=== PATIENT | male | born 1975 | race Caucasian/White ===

== ENCOUNTER 2017-05-02 16:35 | Inpatient (IN) | payer MEDICAID ==
[~2017-05-02] VITALS: Ht 190.5 cm; Wt 195.6 kg
[~2017-05-02 16:35] MED LIST: AMIO200T57 PO; APIX5TAB3 PO; ASPI-1265 PO; CARV-50 PO; ESCI20TA PO; FURO-150 PO; LISI-644 PO; LORA0.5T PO; LORA10TA61 PO; MAGN200T5 PO; METO5TAB7 PO; POTA20PA3 PO; SIMV10TA2 PO; SPIR25TA3 PO
[2017-05-02] MEDS ORDERED: aspirin 81mg tab.chew PO ONE (16:50)
[2017-05-02 17:13] LABS: BASOPHILS % (AUTO) 0.4 % (0-1); EOSINOPHILS # (AUTO) 0.4 X10'3 (0-0.9); EOSINOPHILS % (AUTO) 3.1 % (0-6); HEMATOCRIT 42.1 % (42.0-52.0); HEMOGLOBIN 13.8 g/dl (14.0-17.9); LYMPHOCYTES # (AUTO) 1.7 X10'3 (1.1-4.8); LYMPHOCYTES % (AUTO) 15.3 % (21-51); MEAN CORPUSCULAR HEMOGLOBIN 27.5 PG (27.0-31.0); MEAN CORPUSCULAR HGB CONC 32.8 % (33.0-36.5); MEAN CORPUSCULAR VOLUME 83.7 FL (78-98); MEAN PLATELET VOLUME 7.2 FL (7.4-10.4); MONOCYTES # (AUTO) 0.6 X10'3 (0-0.9); NEUTROPHILS # (AUTO) 8.6 X10'3 (1.8-7.7); NEUTROPHILS % (AUTO) 76.2 % (42-75); PLATELET COUNT 265 X10'3 (140-440); RED BLOOD COUNT 5.03 X10'6 (4.70-6.10); RED CELL DISTRIBUTION WIDTH 15.8 % (11.5-14.5); WHITE BLOOD COUNT 11.3 X10'3 (4.5-11.0)
[2017-05-02 17:38] LABS: ALANINE AMINOTRANSFERASE 55 U/L (12-78); ALBUMIN 3.3 G/DL (3.4-5.0); ALBUMIN/GLOBULIN RATIO 0.7 (1.1-1.5); ALKALINE PHOSPHATASE 71 IU/L (46-116); ANION GAP 8 (8-16); ASPARTATE AMINO TRANSFERASE 33 U/L (10-37); BILIRUBIN,TOTAL 0.3 MG/DL (0.1-1.0); BLOOD UREA NITROGEN 23 MG/DL (7-18); BUN/CREATININE RATIO 20.9 (5.4-32.0); CALCIUM 9.3 MG/DL (8.5-10.1); CHLORIDE 98 MMOL/L (99-107); GLUCOSE 161 MG/DL (70-104); MAGNESIUM 1.5 MG/DL (1.5-2.4); SODIUM 141 MMOL/L (135-145); TOTAL CARBON DIOXIDE 34.7 MMOL/L (24-32); TOTAL PROTEIN 7.8 G/DL (6.4-8.2); eGFR 75 ML/MIN
[2017-05-02 17:40] LABS: POTASSIUM 2.6 MMOL/L (3.5-5.1)
[2017-05-02] MEDS ORDERED: furosemide 10 MG/1 ML 10ml inj IV ONE (18:05)
[2017-05-02] MEDS ORDERED: metoprolol tartrate 1mg/ml inj IV ONE (18:05)
[2017-05-02 18:22] LABS: CLARITY,URINE CLEAR (Clear); COLOR,URINE YELLOW (Yellow); GLUCOSE, URINE NEGATIVE (Neg); KETONES,URINE NEGATIVE (Neg); LEUKOCYTE ESTERASE ,URINE NEGATIVE (Neg); NITRITES, URINE NEGATIVE (Neg); OCCULT BLOOD,URINE SMALL (Neg); PROTEIN,URINE 30 mg/dl (Neg); UA COLLECTION TYPE CLN CATCH MIDSTREAM; UROBILINOGEN,URINE 0.2 E.U/dL (0.2-1.0)
[2017-05-02 18:31] LABS: URINE AMPHETAMINE SCREEN NEGATIVE (Neg); URINE BENZODIAZEPINES SCREEN NEGATIVE (Neg); URINE CANNABINOID SCREEN NEGATIVE (Neg); URINE COCAINE SCREEN NEGATIVE (Neg); URINE METHADONE SCREEN NEGATIVE (Neg); URINE OPIATE SCREEN NEGATIVE (Neg); URINE PHENCYCLIDINE SCREEN NEGATIVE (Neg)
[2017-05-02 18:32] LABS: BACTERIA,URINE NONE SEEN /HPF (Neg); MUCUS STRANDS NONE SEEN /LPF (Neg); RBC,URINE 0-2 /HPF (0-2); SQUAMOUS EPITHELIAL CELL,UR NONE SEEN /LPF (FEW); WBC,URINE NONE SEEN /HPF (0-4)
[2017-05-02 18:33] LABS: URINE BARBITUATE SCREEN POSITIVE (Neg)
[2017-05-02] MEDS ORDERED: diltiazem 5mg/ml 5ml inj. IV ONE (18:50)
[2017-05-02] MEDS ORDERED: morphine 2 MG/ML inj. syringe IV ONE (19:40)
[2017-05-02] MEDS ORDERED: ondansetron/PF 4mg/2ml inj IV PRN (20:00)
[2017-05-02] MEDS ORDERED: magnesium hydroxide 30ml (MOM) UD suspension PO PRN (20:00)
[2017-05-02] MEDS ORDERED: mag hydrox/Alum hydrox/simeth 30ml oral suspension PO PRN (20:00)
[2017-05-02] MEDS ORDERED: LORazepam 0.5 MG tablet PO PRN (20:05)
[2017-05-02] MEDS ORDERED: potassium Cl 20 mEq SR tablet PO PRN (20:25)
[2017-05-02 20:37] LABS: ALANINE AMINOTRANSFERASE 56 U/L (12-78); ALBUMIN 3.4 G/DL (3.4-5.0); ALBUMIN/GLOBULIN RATIO 0.7 (1.1-1.5); ALKALINE PHOSPHATASE 70 IU/L (46-116); ASPARTATE AMINO TRANSFERASE 36 U/L (10-37); BILIRUBIN,DIRECT 0.1 MG/DL (0-0.3); BILIRUBIN,TOTAL 0.3 MG/DL (0.1-1.0); TOTAL PROTEIN 8.2 G/DL (6.4-8.2); eGFR 75 ML/MIN
[2017-05-02 20:41] LABS: POTASSIUM 2.6 MMOL/L (3.5-5.1)
[2017-05-02] MEDS ORDERED: MAGN400T6 PO (21:16)
[2017-05-02] MEDS ORDERED: DULO20CA50 PO (21:16)
[2017-05-02] MEDS ORDERED: BUPR150T6 (21:16)
[2017-05-02 21:30] VITALS: BP 96/76
[2017-05-02] MEDS: potassium Cl 20 mEq SR tablet PO PRN (21:36)
[2017-05-02] MEDS: atorvastatin 10mg tablet PO SCH (21:36)
[2017-05-02 23:00] VITALS: BP 121/79
[2017-05-03] VITALS (13 sets, daily range): BP systolic 64–131; BP diastolic 37–113
[2017-05-03] MEDS: potassium Cl 20 mEq SR tablet PO PRN (01:23)
[2017-05-03 05:45] LABS: BASOPHILS # (AUTO) 0.1 X10'3 (0-0.2); BASOPHILS % (AUTO) 0.7 % (0-1); EOSINOPHILS # (AUTO) 0.3 X10'3 (0-0.9); EOSINOPHILS % (AUTO) 3.2 % (0-6); HEMATOCRIT 42.8 % (42.0-52.0); HEMOGLOBIN 13.7 g/dl (14.0-17.9); LYMPHOCYTES # (AUTO) 1.7 X10'3 (1.1-4.8); LYMPHOCYTES % (AUTO) 18.4 % (21-51); MEAN CORPUSCULAR HGB CONC 32.1 % (33.0-36.5); MEAN CORPUSCULAR VOLUME 84.1 FL (78-98); MEAN PLATELET VOLUME 7.8 FL (7.4-10.4); MONOCYTES # (AUTO) 0.7 X10'3 (0-0.9); MONOCYTES % (AUTO) 7.6 % (2-12); NEUTROPHILS # (AUTO) 6.6 X10'3 (1.8-7.7); NEUTROPHILS % (AUTO) 70.1 % (42-75); PLATELET COUNT 214 X10'3 (140-440); RED BLOOD COUNT 5.09 X10'6 (4.70-6.10); WHITE BLOOD COUNT 9.4 X10'3 (4.5-11.0)
[2017-05-03 05:58] LABS: ALANINE AMINOTRANSFERASE 53 U/L (12-78); ALBUMIN 3.1 G/DL (3.4-5.0); ALBUMIN/GLOBULIN RATIO 0.7 (1.1-1.5); ALKALINE PHOSPHATASE 64 IU/L (46-116); ANION GAP 9 (8-16); ASPARTATE AMINO TRANSFERASE 41 U/L (10-37); BILIRUBIN,TOTAL 0.5 MG/DL (0.1-1.0); BLOOD UREA NITROGEN 24 MG/DL (7-18); CALCIUM 9.2 MG/DL (8.5-10.1); CHLORIDE 97 MMOL/L (99-107); GLUCOSE 134 MG/DL (70-104); SODIUM 137 MMOL/L (135-145); TOTAL CARBON DIOXIDE 31.5 MMOL/L (24-32); TOTAL PROTEIN 7.5 G/DL (6.4-8.2); eGFR 83 ML/MIN
[2017-05-03 07:09] LABS: POTASSIUM 2.9 MMOL/L (3.5-5.1)
[2017-05-03] MEDS ORDERED: SACU1TAB (07:53)
[2017-05-03] MEDS ORDERED: furosemide 10 MG/1 ML 10ml inj IV SCH (08:00)
[2017-05-03] MEDS ORDERED: furosemide 20MG tablet PO SCH (08:00)
[2017-05-03] MEDS ORDERED: carVEDilol 12.5mg tablet PO SCH (08:00)
[2017-05-03] MEDS: citalopram 20mg tablet PO SCH (08:00)
[2017-05-03] MEDS ORDERED: potassium Cl 20 mEq SR tablet PO SCH (08:00)
[2017-05-03] MEDS: loratadine 10mg tablet PO SCH (09:17)
[2017-05-03] MEDS: magnesium oxide 400mg tablet PO SCH (09:18)
[2017-05-03] MEDS: aspirin 81mg tab.chew PO SCH (09:19)
[2017-05-03] MEDS: potassium Cl 20 mEq SR tablet PO SCH ×4 (09:21→21:21)
[2017-05-03] MEDS: furosemide inj 100 ML IV SCH (09:24)
[2017-05-03] MEDS: spironolactone 25 MG tablet PO SCH ×2 (09:25→21:23)
[2017-05-03] MEDS: lisinopril 20mg tablet PO SCH ×2 (09:25→21:23)
[2017-05-03] MEDS: amiodarone 200mg tablet PO SCH (09:25)
[2017-05-03] MEDS: apixaban 5mg tablet PO SCH ×2 (10:12→21:23)
[2017-05-03] MEDS: metolazone 2.5mg tablet PO SCH (10:13)
[2017-05-03] MEDS ORDERED: normal saline 500ml IV soln 500 ML IV ONE (13:55)
[2017-05-03] MEDS ORDERED: albumin (human) 25% 100 ML IV solution IV ONE (15:25)
[2017-05-03] MEDS: midodrine tablet 2.5 MG TABLET PO SCH (15:41)
[2017-05-03] MEDS: atorvastatin 10mg tablet PO SCH (21:24)
[2017-05-04] VITALS (16 sets, daily range): BP systolic 92–121; BP diastolic 37–85
[2017-05-04] MEDS: potassium Cl 20 mEq SR tablet PO SCH ×4 (00:03→22:07)
[2017-05-04] MEDS: midodrine tablet 2.5 MG TABLET PO SCH ×3 (00:03→16:58)
[2017-05-04] MEDS: DOBUTamine-DoBUTrex 500mg/D5W 250 ML IV SCH ×6 (02:36→22:12)
[2017-05-04] MEDS ORDERED: furosemide 10 MG/1 ML 10ml inj IV ONE (02:40)
[2017-05-04] MEDS: furosemide inj 100 ML IV SCH ×2 (03:46→11:35)
[2017-05-04 05:30] LABS: BASOPHILS % (AUTO) 0.3 % (0-1); EOSINOPHILS # (AUTO) 0.4 X10'3 (0-0.9); EOSINOPHILS % (AUTO) 3.7 % (0-6); HEMATOCRIT 35.9 % (42.0-52.0); LYMPHOCYTES # (AUTO) 1.8 X10'3 (1.1-4.8); LYMPHOCYTES % (AUTO) 15.4 % (21-51); MEAN CORPUSCULAR HEMOGLOBIN 27.8 PG (27.0-31.0); MEAN CORPUSCULAR HGB CONC 33.5 % (33.0-36.5); MEAN CORPUSCULAR VOLUME 83.2 FL (78-98); MEAN PLATELET VOLUME 7.2 FL (7.4-10.4); MONOCYTES # (AUTO) 0.9 X10'3 (0-0.9); MONOCYTES % (AUTO) 7.3 % (2-12); NEUTROPHILS # (AUTO) 8.6 X10'3 (1.8-7.7); NEUTROPHILS % (AUTO) 73.3 % (42-75); PLATELET COUNT 258 X10'3 (140-440); RED BLOOD COUNT 4.32 X10'6 (4.70-6.10); RED CELL DISTRIBUTION WIDTH 16.6 % (11.5-14.5); WHITE BLOOD COUNT 11.7 X10'3 (4.5-11.0)
[2017-05-04 05:41] LABS: ALANINE AMINOTRANSFERASE 44 U/L (12-78); ALBUMIN 3.1 G/DL (3.4-5.0); ALBUMIN/GLOBULIN RATIO 0.8 (1.1-1.5); ALKALINE PHOSPHATASE 59 IU/L (46-116); ANION GAP 7 (8-16); ASPARTATE AMINO TRANSFERASE 30 U/L (10-37); BILIRUBIN,TOTAL 0.5 MG/DL (0.1-1.0); BLOOD UREA NITROGEN 49 MG/DL (7-18); BUN/CREATININE RATIO 18.8 (5.4-32.0); CHLORIDE 95 MMOL/L (99-107); GLUCOSE 127 MG/DL (70-104); POTASSIUM 3.7 MMOL/L (3.5-5.1); SODIUM 137 MMOL/L (135-145); TOTAL CARBON DIOXIDE 35.5 MMOL/L (24-32); eGFR 28 ML/MIN
[2017-05-04] MEDS: acetaminophen 325mg tablet PO PRN (06:36)
[2017-05-04] MEDS ORDERED: albumin (human) 25% 100 ML IV solution IV ONE (07:30)
[2017-05-04] MEDS ORDERED: acetaminophen 325mg tablet PO PRN (07:30)
[2017-05-04] MEDS: citalopram 20mg tablet PO SCH (08:00)
[2017-05-04] MEDS: aspirin 81mg tab.chew PO SCH (08:14)
[2017-05-04] MEDS: magnesium oxide 400mg tablet PO SCH (08:14)
[2017-05-04] MEDS: loratadine 10mg tablet PO SCH (08:14)
[2017-05-04] MEDS: metolazone 2.5mg tablet PO SCH (08:14)
[2017-05-04] MEDS: amiodarone 200mg tablet PO SCH (08:15)
[2017-05-04] MEDS: lisinopril 20mg tablet PO SCH (08:15)
[2017-05-04] MEDS: spironolactone 25 MG tablet PO SCH ×2 (08:15→19:43)
[2017-05-04] MEDS: morphine 2 MG/ML inj. syringe IV PRN ×3 (09:21→22:12)
[2017-05-04] MEDS: apixaban 5mg tablet PO SCH ×2 (09:22→19:43)
[2017-05-04] MEDS: HYDROcodone/acetaminophen 10/325mg tab PO PRN (12:36)
[2017-05-04] MEDS: guaiFENesin 200 MG/10 ML oral syrup UD cup PO SCH ×2 (12:42→22:08)
[2017-05-04 15:36] LABS: MAGNESIUM 2.2 MG/DL (1.5-2.4); POTASSIUM 3.6 MMOL/L (3.5-5.1)
[2017-05-04] MEDS: atorvastatin 10mg tablet PO SCH (22:08)
[2017-05-05] VITALS (19 sets, daily range): BP systolic 86–129; BP diastolic 43–83
[2017-05-05] MEDS: midodrine tablet 2.5 MG TABLET PO SCH ×2 (00:48→07:59)
[2017-05-05] MEDS ORDERED: potassium Cl 20 mEq SR tablet PO ONE (02:04)
[2017-05-05] MEDS: HYDROcodone/acetaminophen 10/325mg tab PO PRN ×3 (02:25→19:19)
[2017-05-05 06:08] LABS: BASOPHILS % (AUTO) 0.3 % (0-1); EOSINOPHILS # (AUTO) 0.3 X10'3 (0-0.9); EOSINOPHILS % (AUTO) 2.6 % (0-6); HEMATOCRIT 36.2 % (42.0-52.0); HEMOGLOBIN 12.4 g/dl (14.0-17.9); LYMPHOCYTES # (AUTO) 1.6 X10'3 (1.1-4.8); LYMPHOCYTES % (AUTO) 12.9 % (21-51); MEAN CORPUSCULAR HEMOGLOBIN 28.3 PG (27.0-31.0); MEAN CORPUSCULAR HGB CONC 34.2 % (33.0-36.5); MEAN CORPUSCULAR VOLUME 82.7 FL (78-98); MEAN PLATELET VOLUME 7.2 FL (7.4-10.4); MONOCYTES # (AUTO) 0.9 X10'3 (0-0.9); MONOCYTES % (AUTO) 7.1 % (2-12); NEUTROPHILS # (AUTO) 9.4 X10'3 (1.8-7.7); NEUTROPHILS % (AUTO) 77.1 % (42-75); PLATELET COUNT 254 X10'3 (140-440); RED BLOOD COUNT 4.37 X10'6 (4.70-6.10); RED CELL DISTRIBUTION WIDTH 16.6 % (11.5-14.5); WHITE BLOOD COUNT 12.3 X10'3 (4.5-11.0)
[2017-05-05 06:35] LABS: ALANINE AMINOTRANSFERASE 46 U/L (12-78); ALBUMIN 3.8 G/DL (3.4-5.0); ALKALINE PHOSPHATASE 61 IU/L (46-116); ANION GAP 11 (8-16); ASPARTATE AMINO TRANSFERASE 33 U/L (10-37); BILIRUBIN,TOTAL 0.6 MG/DL (0.1-1.0); BLOOD UREA NITROGEN 70 MG/DL (7-18); BUN/CREATININE RATIO 19.4 (5.4-32.0); CHLORIDE 93 MMOL/L (99-107); GLUCOSE 119 MG/DL (70-104); POTASSIUM 3.7 MMOL/L (3.5-5.1); SODIUM 135 MMOL/L (135-145); TOTAL CARBON DIOXIDE 30.8 MMOL/L (24-32); TOTAL PROTEIN 7.8 G/DL (6.4-8.2); eGFR 19 ML/MIN
[2017-05-05] MEDS: guaiFENesin 200 MG/10 ML oral syrup UD cup PO SCH ×3 (07:43→21:11)
[2017-05-05] MEDS: DOBUTamine-DoBUTrex 500mg/D5W 250 ML IV SCH ×2 (07:57→21:20)
[2017-05-05] MEDS: acetaminophen 325mg tablet PO PRN (07:58)
[2017-05-05] MEDS: magnesium oxide 400mg tablet PO SCH (07:59)
[2017-05-05] MEDS: potassium Cl 20 mEq SR tablet PO SCH (07:59)
[2017-05-05] MEDS: apixaban 5mg tablet PO SCH ×2 (07:59→21:11)
[2017-05-05] MEDS: spironolactone 25 MG tablet PO SCH (07:59)
[2017-05-05] MEDS: amiodarone 200mg tablet PO SCH (07:59)
[2017-05-05] MEDS: citalopram 20mg tablet PO SCH (08:00)
[2017-05-05] MEDS ORDERED: lisinopril 5mg tablet PO SCH (08:00)
[2017-05-05] MEDS: loratadine 10mg tablet PO SCH (08:00)
[2017-05-05] MEDS: aspirin 81mg tab.chew PO SCH (08:00)
[2017-05-05] MEDS: metolazone 2.5mg tablet PO SCH (08:00)
[2017-05-05] MEDS ORDERED: diatr meglu/diatrizoate 30ml oral sol.-(3 dose) bottle PO SCH (21:00)
[2017-05-05] MEDS: atorvastatin 10mg tablet PO SCH (21:11)
[2017-05-06] VITALS (15 sets, daily range): BP systolic 94–154; BP diastolic 42–81
[2017-05-06] MEDS: DOBUTamine-DoBUTrex 500mg/D5W 250 ML IV SCH ×3 (03:20→22:34)
[2017-05-06 05:46] LABS: BASOPHILS % (AUTO) 0.3 % (0-1); EOSINOPHILS # (AUTO) 0.4 X10'3 (0-0.9); HEMATOCRIT 34.4 % (42.0-52.0); HEMOGLOBIN 11.5 g/dl (14.0-17.9); LYMPHOCYTES # (AUTO) 1.7 X10'3 (1.1-4.8); LYMPHOCYTES % (AUTO) 17.7 % (21-51); MEAN CORPUSCULAR HEMOGLOBIN 27.8 PG (27.0-31.0); MEAN CORPUSCULAR HGB CONC 33.5 % (33.0-36.5); MEAN PLATELET VOLUME 7.2 FL (7.4-10.4); MONOCYTES # (AUTO) 0.8 X10'3 (0-0.9); NEUTROPHILS # (AUTO) 6.9 X10'3 (1.8-7.7); PLATELET COUNT 235 X10'3 (140-440); RED BLOOD COUNT 4.14 X10'6 (4.70-6.10); RED CELL DISTRIBUTION WIDTH 16.9 % (11.5-14.5); WHITE BLOOD COUNT 9.8 X10'3 (4.5-11.0)
[2017-05-06 06:11] LABS: ALANINE AMINOTRANSFERASE 41 U/L (12-78); ALBUMIN 3.3 G/DL (3.4-5.0); ALBUMIN/GLOBULIN RATIO 0.8 (1.1-1.5); ALKALINE PHOSPHATASE 55 IU/L (46-116); ANION GAP 8 (8-16); ASPARTATE AMINO TRANSFERASE 31 U/L (10-37); BILIRUBIN,TOTAL 0.4 MG/DL (0.1-1.0); BLOOD UREA NITROGEN 88 MG/DL (7-18); BUN/CREATININE RATIO 25.1 (5.4-32.0); CALCIUM 8.7 MG/DL (8.5-10.1); CHLORIDE 96 MMOL/L (99-107); GLUCOSE 106 MG/DL (70-104); POTASSIUM 3.9 MMOL/L (3.5-5.1); SODIUM 134 MMOL/L (135-145); TOTAL CARBON DIOXIDE 29.7 MMOL/L (24-32); TOTAL PROTEIN 7.2 G/DL (6.4-8.2); eGFR 20 ML/MIN
[2017-05-06] MEDS: aspirin 81mg tab.chew PO SCH (08:06)
[2017-05-06] MEDS: guaiFENesin 200 MG/10 ML oral syrup UD cup PO SCH ×3 (08:06→21:01)
[2017-05-06] MEDS: citalopram 20mg tablet PO SCH (08:06)
[2017-05-06] MEDS: amiodarone 200mg tablet PO SCH (08:06)
[2017-05-06] MEDS: loratadine 10mg tablet PO SCH (08:06)
[2017-05-06] MEDS: HYDROcodone/acetaminophen 10/325mg tab PO PRN (08:06)
[2017-05-06] MEDS: apixaban 5mg tablet PO SCH ×2 (08:06→21:01)
[2017-05-06] MEDS: magnesium oxide 400mg tablet PO SCH (08:06)
[2017-05-06] MEDS: sodium chloride 0.45% 1,000 ML IV SCH (12:46)
[2017-05-06] MEDS: acetaminophen 325mg tablet PO PRN (18:56)
[2017-05-06] MEDS: atorvastatin 10mg tablet PO SCH (21:01)
[2017-05-07] VITALS (13 sets, daily range): BP systolic 116–174; BP diastolic 55–105
[2017-05-07] MEDS: sodium chloride 0.45% 1,000 ML IV SCH ×2 (02:54→17:32)
[2017-05-07 05:06] LABS: BASOPHILS % (AUTO) 0.4 % (0-1); EOSINOPHILS # (AUTO) 0.2 X10'3 (0-0.9); EOSINOPHILS % (AUTO) 2.7 % (0-6); HEMATOCRIT 37.4 % (42.0-52.0); HEMOGLOBIN 12.4 g/dl (14.0-17.9); LYMPHOCYTES # (AUTO) 1.2 X10'3 (1.1-4.8); LYMPHOCYTES % (AUTO) 14.8 % (21-51); MEAN CORPUSCULAR HEMOGLOBIN 27.9 PG (27.0-31.0); MEAN CORPUSCULAR HGB CONC 33.2 % (33.0-36.5); MEAN CORPUSCULAR VOLUME 84.2 FL (78-98); MEAN PLATELET VOLUME 7.1 FL (7.4-10.4); MONOCYTES # (AUTO) 0.7 X10'3 (0-0.9); MONOCYTES % (AUTO) 8.5 % (2-12); NEUTROPHILS % (AUTO) 73.6 % (42-75); PLATELET COUNT 237 X10'3 (140-440); RED BLOOD COUNT 4.44 X10'6 (4.70-6.10); RED CELL DISTRIBUTION WIDTH 17.2 % (11.5-14.5); WHITE BLOOD COUNT 8.2 X10'3 (4.5-11.0)
[2017-05-07 05:41] LABS: ALANINE AMINOTRANSFERASE 37 U/L (12-78); ALBUMIN 3.5 G/DL (3.4-5.0); ALBUMIN/GLOBULIN RATIO 0.8 (1.1-1.5); ALKALINE PHOSPHATASE 57 IU/L (46-116); ANION GAP 6 (8-16); ASPARTATE AMINO TRANSFERASE 36 U/L (10-37); BILIRUBIN,TOTAL 0.4 MG/DL (0.1-1.0); BLOOD UREA NITROGEN 62 MG/DL (7-18); BUN/CREATININE RATIO 51.7 (5.4-32.0); CALCIUM 9.3 MG/DL (8.5-10.1); CHLORIDE 100 MMOL/L (99-107); GLUCOSE 133 MG/DL (70-104); SODIUM 137 MMOL/L (135-145); TOTAL PROTEIN 7.9 G/DL (6.4-8.2); eGFR 67 ML/MIN
[2017-05-07 05:42] LABS: POTASSIUM 4.2 MMOL/L (3.5-5.1)
[2017-05-07] MEDS: guaiFENesin 200 MG/10 ML oral syrup UD cup PO SCH ×3 (07:01→20:58)
[2017-05-07] MEDS: loratadine 10mg tablet PO SCH (07:01)
[2017-05-07] MEDS: aspirin 81mg tab.chew PO SCH (07:02)
[2017-05-07] MEDS: acetaminophen 325mg tablet PO PRN ×2 (07:02→17:32)
[2017-05-07] MEDS: amiodarone 200mg tablet PO SCH (07:02)
[2017-05-07] MEDS: magnesium oxide 400mg tablet PO SCH (07:02)
[2017-05-07] MEDS: citalopram 20mg tablet PO SCH (07:02)
[2017-05-07] MEDS: DOBUTamine-DoBUTrex 500mg/D5W 250 ML IV SCH ×2 (07:06→16:16)
[2017-05-07] MEDS: apixaban 5mg tablet PO SCH ×2 (07:07→20:58)
[2017-05-07] MEDS: predniSONE 20 mg tablet PO SCH (17:22)
[2017-05-07] MEDS: ipratropium/albuterol 3ml nebule NEB SCH ×2 (19:22→22:59)
[2017-05-07] MEDS: atorvastatin 10mg tablet PO SCH (20:58)
[2017-05-08] VITALS (14 sets, daily range): BP systolic 121–172; BP diastolic 56–110
[2017-05-08] MEDS: ipratropium/albuterol 3ml nebule NEB SCH ×6 (02:42→23:00)
[2017-05-08] MEDS: DOBUTamine-DoBUTrex 500mg/D5W 250 ML IV SCH ×3 (03:08→21:17)
[2017-05-08 06:34] LABS: BASOPHILS % (AUTO) 0.3 % (0-1); EOSINOPHILS % (AUTO) 0.1 % (0-6); HEMATOCRIT 34.9 % (42.0-52.0); HEMOGLOBIN 11.8 g/dl (14.0-17.9); LYMPHOCYTES # (AUTO) 1.1 X10'3 (1.1-4.8); LYMPHOCYTES % (AUTO) 12.3 % (21-51); MEAN CORPUSCULAR HEMOGLOBIN 28.4 PG (27.0-31.0); MEAN CORPUSCULAR HGB CONC 33.9 % (33.0-36.5); MEAN CORPUSCULAR VOLUME 83.9 FL (78-98); MEAN PLATELET VOLUME 7.1 FL (7.4-10.4); MONOCYTES # (AUTO) 0.6 X10'3 (0-0.9); MONOCYTES % (AUTO) 6.3 % (2-12); NEUTROPHILS # (AUTO) 7.3 X10'3 (1.8-7.7); PLATELET COUNT 248 X10'3 (140-440); RED BLOOD COUNT 4.16 X10'6 (4.70-6.10); RED CELL DISTRIBUTION WIDTH 17.1 % (11.5-14.5)
[2017-05-08 07:35] LABS: ALANINE AMINOTRANSFERASE 41 U/L (12-78); ALBUMIN 3.2 G/DL (3.4-5.0); ALBUMIN/GLOBULIN RATIO 0.8 (1.1-1.5); ALKALINE PHOSPHATASE 54 IU/L (46-116); ANION GAP 6 (8-16); ASPARTATE AMINO TRANSFERASE 26 U/L (10-37); BILIRUBIN,TOTAL 0.3 MG/DL (0.1-1.0); BLOOD UREA NITROGEN 24 MG/DL (7-18); BUN/CREATININE RATIO 26.7 (5.4-32.0); CALCIUM 9.1 MG/DL (8.5-10.1); CHLORIDE 101 MMOL/L (99-107); GLUCOSE 162 MG/DL (70-104); POTASSIUM 4.1 MMOL/L (3.5-5.1); SODIUM 141 MMOL/L (135-145); TOTAL CARBON DIOXIDE 34.1 MMOL/L (24-32); TOTAL PROTEIN 7.3 G/DL (6.4-8.2); eGFR > 90 ML/MIN
[2017-05-08] MEDS: citalopram 20mg tablet PO SCH (08:00)
[2017-05-08] MEDS: loratadine 10mg tablet PO SCH (08:50)
[2017-05-08] MEDS: magnesium oxide 400mg tablet PO SCH (08:50)
[2017-05-08] MEDS: aspirin 81mg tab.chew PO SCH (08:50)
[2017-05-08] MEDS: amiodarone 200mg tablet PO SCH (08:50)
[2017-05-08] MEDS: apixaban 5mg tablet PO SCH ×2 (08:51→21:16)
[2017-05-08] MEDS: guaiFENesin 200 MG/10 ML oral syrup UD cup PO SCH ×3 (08:51→21:15)
[2017-05-08] MEDS: predniSONE 20 mg tablet PO SCH (08:51)
[2017-05-08] MEDS: sodium chloride 0.45% 1,000 ML IV SCH (09:04)
[2017-05-08] MEDS ORDERED: carVEDilol 12.5mg tablet PO ONE (11:20)
[2017-05-08] MEDS: acetaminophen 325mg tablet PO PRN (11:29)
[2017-05-08] MEDS: carVEDilol 12.5mg tablet PO SCH (21:15)
[2017-05-08] MEDS: atorvastatin 10mg tablet PO SCH (21:15)
[2017-05-09] VITALS (13 sets, daily range): BP systolic 113–157; BP diastolic 59–97
[2017-05-09] MEDS: sodium chloride 0.45% 1,000 ML IV SCH (01:17)
[2017-05-09] MEDS: ipratropium/albuterol 3ml nebule NEB SCH ×6 (03:08→23:39)
[2017-05-09] MEDS: HYDROcodone/acetaminophen 10/325mg tab PO PRN ×3 (05:25→18:10)
[2017-05-09] MEDS: DOBUTamine-DoBUTrex 500mg/D5W 250 ML IV SCH ×3 (06:47→20:54)
[2017-05-09] MEDS: citalopram 20mg tablet PO SCH (08:00)
[2017-05-09] MEDS: amiodarone 200mg tablet PO SCH (08:53)
[2017-05-09] MEDS: aspirin 81mg tab.chew PO SCH (08:53)
[2017-05-09] MEDS: loratadine 10mg tablet PO SCH (08:53)
[2017-05-09] MEDS: magnesium oxide 400mg tablet PO SCH (08:54)
[2017-05-09] MEDS: predniSONE 20 mg tablet PO SCH (08:54)
[2017-05-09] MEDS: apixaban 5mg tablet PO SCH ×2 (08:54→19:56)
[2017-05-09] MEDS: carVEDilol 12.5mg tablet PO SCH ×2 (08:54→19:56)
[2017-05-09] MEDS: guaiFENesin 200 MG/10 ML oral syrup UD cup PO SCH ×3 (08:55→19:56)
[2017-05-09] MEDS: atorvastatin 10mg tablet PO SCH (19:56)
[2017-05-09] MEDS: sacubitril/valsartan 24mg-26mg tablet PO SCH (21:47)
[2017-05-10] VITALS (13 sets, daily range): BP systolic 106–148; BP diastolic 59–88
[2017-05-10] MEDS: ipratropium/albuterol 3ml nebule NEB SCH ×5 (02:53→23:21)
[2017-05-10] MEDS: HYDROcodone/acetaminophen 10/325mg tab PO PRN ×3 (05:34→20:05)
[2017-05-10 07:40] LABS: ANION GAP 5 (8-16); BLOOD UREA NITROGEN 20 MG/DL (7-18); CALCIUM 8.9 MG/DL (8.5-10.1); CHLORIDE 104 MMOL/L (99-107); GLUCOSE 105 MG/DL (70-104); POTASSIUM 4.1 MMOL/L (3.5-5.1); SODIUM 140 MMOL/L (135-145); TOTAL CARBON DIOXIDE 31.3 MMOL/L (24-32); eGFR > 90 ML/MIN
[2017-05-10] MEDS: DOBUTamine-DoBUTrex 500mg/D5W 250 ML IV SCH ×2 (07:45→17:33)
[2017-05-10] MEDS: citalopram 20mg tablet PO SCH (08:00)
[2017-05-10] MEDS: carVEDilol 12.5mg tablet PO SCH ×2 (08:22→20:00)
[2017-05-10] MEDS: apixaban 5mg tablet PO SCH ×2 (08:22→20:00)
[2017-05-10] MEDS: aspirin 81mg tab.chew PO SCH (08:22)
[2017-05-10] MEDS: loratadine 10mg tablet PO SCH (08:22)
[2017-05-10] MEDS: magnesium oxide 400mg tablet PO SCH (08:22)
[2017-05-10] MEDS: amiodarone 200mg tablet PO SCH (08:22)
[2017-05-10] MEDS: guaiFENesin 200 MG/10 ML oral syrup UD cup PO SCH (08:23)
[2017-05-10] MEDS: sacubitril/valsartan 24mg-26mg tablet PO SCH ×2 (08:23→20:01)
[2017-05-10] MEDS: prednisone 10mg tablet PO SCH (08:23)
[2017-05-10] MEDS ORDERED: morphine 5 MG/ML injection IV PRN (16:14)
[2017-05-10] MEDS: furosemide 40mg/4ml inj IV SCH ×2 (17:33→20:00)
[2017-05-10] MEDS: metolazone 2.5mg tablet PO SCH (20:01)
[2017-05-10] MEDS: atorvastatin 10mg tablet PO SCH (20:01)
[2017-05-11] VITALS (10 sets, daily range): BP systolic 94–146; BP diastolic 60–95
[2017-05-11] MEDS: ipratropium/albuterol 3ml nebule NEB SCH ×4 (03:00→14:52)
[2017-05-11] MEDS: DOBUTamine-DoBUTrex 500mg/D5W 250 ML IV SCH (05:00)
[2017-05-11] MEDS: HYDROcodone/acetaminophen 10/325mg tab PO PRN ×2 (06:33→14:00)
[2017-05-11 07:45] LABS: ALBUMIN 2.8 G/DL (3.4-5.0); ANION GAP 4 (8-16); BLOOD UREA NITROGEN 19 MG/DL (7-18); BUN/CREATININE RATIO 21.1 (5.4-32.0); CALCIUM 8.7 MG/DL (8.5-10.1); CHLORIDE 103 MMOL/L (99-107); GLUCOSE 118 MG/DL (70-104); POTASSIUM 3.5 MMOL/L (3.5-5.1); SODIUM 141 MMOL/L (135-145); TOTAL CARBON DIOXIDE 34.2 MMOL/L (24-32); eGFR > 90 ML/MIN
[2017-05-11] MEDS: citalopram 20mg tablet PO SCH (08:00)
[2017-05-11] MEDS: aspirin 81mg tab.chew PO SCH (08:05)
[2017-05-11] MEDS: loratadine 10mg tablet PO SCH (08:06)
[2017-05-11] MEDS: magnesium oxide 400mg tablet PO SCH (08:06)
[2017-05-11] MEDS: prednisone 10mg tablet PO SCH (08:06)
[2017-05-11] MEDS: furosemide 40mg/4ml inj IV SCH (08:07)
[2017-05-11] MEDS: amiodarone 200mg tablet PO SCH (08:07)
[2017-05-11] MEDS: sacubitril/valsartan 24mg-26mg tablet PO SCH (08:07)
[2017-05-11] MEDS: carVEDilol 12.5mg tablet PO SCH (08:07)
[2017-05-11] MEDS: apixaban 5mg tablet PO SCH (08:07)
[2017-05-11] MEDS: metolazone 2.5mg tablet PO SCH (08:08)
== END 2017-05-11 15:35 | disposition home health service (06) | DRG 194 ==
LOC: ER 16:36 → ED HOLD 19:59 → EDBEDREQ 20:54 → PCU 3S 21:25
PROVIDERS: ADMIT Internal Medicine; ATTEND Internal Medicine
PROC: 5A09357 Assistance with Respiratory Ventilation, Less than 24 Consecutive Hours, Continuous Positive Airway Pressure (ICD-10-PCS; 2017-05-05)
PROC: 5A09357 Assistance with Respiratory Ventilation, Less than 24 Consecutive Hours, Continuous Positive Airway Pressure (ICD-10-PCS; 2017-05-06)
PROC: 5A09357 Assistance with Respiratory Ventilation, Less than 24 Consecutive Hours, Continuous Positive Airway Pressure (ICD-10-PCS; principal; 2017-05-11)
DX: I13.0 Hypertensive heart and chronic kidney disease with heart failure and stage 1 through stage 4 chronic kidney disease, or unspecified chronic kidney disease (principal); N17.9 Acute kidney failure, unspecified; I24.8 Other forms of acute ischemic heart disease; Z68.43 Body mass index [BMI] 50.0-59.9, adult; J44.1 Chronic obstructive pulmonary disease with (acute) exacerbation; I50.23 Acute on chronic systolic (congestive) heart failure; I42.9 Cardiomyopathy, unspecified; E66.01 Morbid (severe) obesity due to excess calories; I48.0 Paroxysmal atrial fibrillation; I50.84 End stage heart failure; F15.10 Other stimulant abuse, uncomplicated; F32.9 Major depressive disorder, single episode, unspecified; F41.9 Anxiety disorder, unspecified; M54.9 Dorsalgia, unspecified; I48.91 Unspecified atrial fibrillation; E87.6 Hypokalemia; F15.11 Other stimulant abuse, in remission; I44.7 Left bundle-branch block, unspecified; N18.9 Chronic kidney disease, unspecified; E78.5 Hyperlipidemia, unspecified; F17.200 Nicotine dependence, unspecified, uncomplicated; G47.33 Obstructive sleep apnea (adult) (pediatric); I25.10 Atherosclerotic heart disease of native coronary artery without angina pectoris; Z79.01 Long term (current) use of anticoagulants; Z82.49 Family history of ischemic heart disease and other diseases of the circulatory system; Z91.14 Patient's other noncompliance with medication regimen; Z91.19 Patient's noncompliance with other medical treatment and regimen; Z80.9 Family history of malignant neoplasm, unspecified; Z71.6 Tobacco abuse counseling
CPT/HCPCS: 36415; 71045; 74150; 76775; 80048; 80053; 80076; 80305; 81001; 82565; 82948; 83735; 83880; 84132; 84439; 84443; 84484; 85025; 87070; 93005; 93308; 94640; 94660; 94760; 96374; 96375; 99285; A6449; J1250; J1940; J2270; J2405; J3490; J7030; J7512; P9047

== ENCOUNTER 2017-06-20 21:54 | Emergency (ER) | payer MEDICAID ==
[~2017-06-20] VITALS: Ht 190.5 cm; Wt 185.0 kg
[~2017-06-20 21:54] MED LIST changes: +ALBU8HFA PO; +BUME2TAB3 PO; +BUPR150T6; -ESCI20TA PO; -FURO-150 PO; -LISI-644 PO; +NITR0.4T51 SL; -POTA20PA3 PO; +SACU1TAB7 PO
[2017-06-20 22:25] LABS: BASOPHILS % (AUTO) 0.1 % (0-1); EOSINOPHILS # (AUTO) 0.2 X10'3 (0-0.9); EOSINOPHILS % (AUTO) 1.9 % (0-6); HEMOGLOBIN 13.2 g/dl (14.0-17.9); LYMPHOCYTES # (AUTO) 2.5 X10'3 (1.1-4.8); LYMPHOCYTES % (AUTO) 19.3 % (21-51); MEAN CORPUSCULAR HEMOGLOBIN 27.8 PG (27.0-31.0); MEAN CORPUSCULAR HGB CONC 33.1 % (33.0-36.5); MEAN PLATELET VOLUME 7.1 FL (7.4-10.4); MONOCYTES # (AUTO) 0.9 X10'3 (0-0.9); MONOCYTES % (AUTO) 7.2 % (2-12); NEUTROPHILS # (AUTO) 9.1 X10'3 (1.8-7.7); NEUTROPHILS % (AUTO) 71.5 % (42-75); PLATELET COUNT 269 X10'3 (140-440); RED BLOOD COUNT 4.76 X10'6 (4.70-6.10); RED CELL DISTRIBUTION WIDTH 17.6 % (11.5-14.5); WHITE BLOOD COUNT 12.7 X10'3 (4.5-11.0)
[2017-06-20 22:33] LABS: PARTIAL THROMBOPLASTIN TIME 27 SECONDS (22-32); PROTHROMBIN TIME 10.7 SECONDS (9.0-12.0)
[2017-06-20 22:42] LABS: ALANINE AMINOTRANSFERASE 48 U/L (12-78); ALBUMIN 3.4 G/DL (3.4-5.0); ALBUMIN/GLOBULIN RATIO 0.7 (1.1-1.5); ALKALINE PHOSPHATASE 70 IU/L (46-116); ANION GAP 10 (8-16); ASPARTATE AMINO TRANSFERASE 21 U/L (10-37); BILIRUBIN,TOTAL 0.2 MG/DL (0.1-1.0); BLOOD UREA NITROGEN 24 MG/DL (7-18); BUN/CREATININE RATIO 17.5 (5.4-32.0); CALCIUM 9.4 MG/DL (8.5-10.1); CHLORIDE 100 MMOL/L (99-107); CREATININE 1.37 MG/DL (0.60-1.10); GLUCOSE 160 MG/DL (70-104); SODIUM 142 MMOL/L (135-145); TOTAL CARBON DIOXIDE 32.2 MMOL/L (24-32); eGFR 58 ML/MIN
[2017-06-20] MEDS ORDERED: aspirin 81mg tab.chew PO ONE (22:50)
[2017-06-20] MEDS ORDERED: ondansetron/PF 4mg/2ml inj IV ONE (22:50)
[2017-06-20] MEDS ORDERED: morphine 4 MG/ML inj SYRINge IV PRN (22:50)
[2017-06-20] MEDS ORDERED: heparin 10,000 units/1 ML INJ IV ONE (22:50)
[2017-06-20] MEDS ORDERED: nitroGLYCERIN 0.4mg SUBLingual tab SL PRN (22:50)
[2017-06-20] MEDS ORDERED: potassium Cl 20 mEq SR tablet PO ONE (23:15)
[2017-06-20] MEDS ORDERED: heparin 10,000 units/1 ML INJ IV PRN ×2 (23:15→23:40)
[2017-06-21] MEDS ORDERED: ondansetron 4mg rapidly disintigrating tab PO ONE (00:50)
[2017-06-21] MEDS ORDERED: carVEDilol 12.5mg tablet PO SCH (01:00)
[2017-06-21 04:33] VITALS: BP 124/74
== END 2017-06-21 04:34 | disposition home or self-care (01) ==
LOC: ER 21:54
DX: E87.6 Hypokalemia (principal); I44.7 Left bundle-branch block, unspecified; R79.89 Other specified abnormal findings of blood chemistry; I48.91 Unspecified atrial fibrillation; I25.10 Atherosclerotic heart disease of native coronary artery without angina pectoris; I11.0 Hypertensive heart disease with heart failure; I50.9 Heart failure, unspecified; F15.10 Other stimulant abuse, uncomplicated; Z95.810 Presence of automatic (implantable) cardiac defibrillator; Z79.82 Long term (current) use of aspirin; Z79.899 Other long term (current) drug therapy
CPT/HCPCS: 36415; 71045; 80053; 84484; 85025; 85610; 85730; 93005; 96365; 96375; 99291; J1644

== ENCOUNTER 2017-08-03 14:52 | Inpatient (IN) | payer MEDICAID ==
[~2017-08-03] VITALS: Ht 190.5 cm; Wt 85.5 kg
[~2017-08-03 14:52] MED LIST changes: -BUPR150T6; +BUPR150T6 PO
[2017-08-03 15:45] LABS: BASOPHILS % (AUTO) 0.1 % (0-1); EOSINOPHILS # (AUTO) 0.3 X10'3 (0-0.9); EOSINOPHILS % (AUTO) 2.4 % (0-6); HEMATOCRIT 39.8 % (42.0-52.0); HEMOGLOBIN 13.5 g/dl (14.0-17.9); LYMPHOCYTES # (AUTO) 1.4 X10'3 (1.1-4.8); LYMPHOCYTES % (AUTO) 12.3 % (21-51); MEAN CORPUSCULAR HEMOGLOBIN 27.8 PG (27.0-31.0); MEAN CORPUSCULAR HGB CONC 33.8 % (33.0-36.5); MEAN CORPUSCULAR VOLUME 82.2 FL (78-98); MEAN PLATELET VOLUME 6.9 FL (7.4-10.4); MONOCYTES # (AUTO) 0.7 X10'3 (0-0.9); MONOCYTES % (AUTO) 5.8 % (2-12); NEUTROPHILS # (AUTO) 8.9 X10'3 (1.8-7.7); NEUTROPHILS % (AUTO) 79.4 % (42-75); PLATELET COUNT 268 X10'3 (140-440); RED BLOOD COUNT 4.84 X10'6 (4.70-6.10); WHITE BLOOD COUNT 11.2 X10'3 (4.5-11.0)
[2017-08-03 15:55] LABS: PARTIAL THROMBOPLASTIN TIME 27 SECONDS (22-32); PROTHROMBIN TIME 10.6 SECONDS (9.0-12.0)
[2017-08-03 16:00] LABS: ALANINE AMINOTRANSFERASE 40 U/L (12-78); ALBUMIN 3.4 G/DL (3.4-5.0); ALBUMIN/GLOBULIN RATIO 0.8 (1.1-1.5); ALKALINE PHOSPHATASE 64 IU/L (46-116); ANION GAP 11 (8-16); ASPARTATE AMINO TRANSFERASE 24 U/L (10-37); BILIRUBIN,TOTAL 0.3 MG/DL (0.1-1.0); BLOOD UREA NITROGEN 24 MG/DL (7-18); BUN/CREATININE RATIO 18.8 (5.4-32.0); CALCIUM 9.6 MG/DL (8.5-10.1); CHLORIDE 95 MMOL/L (99-107); CREATININE 1.28 MG/DL (0.60-1.10); GLUCOSE 184 MG/DL (70-104); SODIUM 138 MMOL/L (135-145); TOTAL CARBON DIOXIDE 32.4 MMOL/L (24-32); TOTAL PROTEIN 7.7 G/DL (6.4-8.2); eGFR 63 ML/MIN
[2017-08-03 16:03] LABS: POTASSIUM 2.3 MMOL/L (3.5-5.1)
[2017-08-03] MEDS ORDERED: potassium Cl oral solution 20 MEQ/15 ML PO ONE (18:50)
[2017-08-03] MEDS ORDERED: potassium Cl 10 mEq/100mL bag IV ONE (18:50)
[2017-08-03] MEDS ORDERED: potassium 10mEq/100ml NS w/LIDOcaine (10mg/bag) IV SCH (18:55)
[2017-08-03 20:00] LABS: MAGNESIUM 1.6 MG/DL (1.5-2.4)
[2017-08-03] MEDS ORDERED: acetaminophen 325mg tablet PO PRN ×2 (21:00)
[2017-08-03] MEDS ORDERED: potassium Cl 20 mEq SR tablet PO PRN ×2 (21:00)
[2017-08-03] MEDS ORDERED: mag hydrox/Alum hydrox/simeth 30ml oral suspension PO PRN (21:00)
[2017-08-03] MEDS ORDERED: ondansetron/PF 4mg/2ml inj IV PRN (21:00)
[2017-08-03] MEDS ORDERED: magnesium hydroxide 30ml (MOM) UD suspension PO PRN (21:00)
[2017-08-03] MEDS ORDERED: potassium Cl 40MEQ/NS 500ml 500 ML IV PRN ×2 (21:00)
[2017-08-03] MEDS ORDERED: LORazepam 0.5 MG tablet PO PRN (21:05)
[2017-08-03] MEDS: carVEDilol 12.5mg tablet PO SCH (21:56)
[2017-08-03] MEDS: spironolactone 25 MG tablet PO SCH (21:57)
[2017-08-03] MEDS: apixaban 5mg tablet PO SCH (21:57)
[2017-08-03] MEDS ORDERED: ATOR20TA PO (23:28)
[2017-08-03] MEDS ORDERED: SACU1TAB7 PO (23:28)
[2017-08-03] MEDS ORDERED: TIOT4MIS3 INH (23:28)
[2017-08-03] MEDS ORDERED: POTA20TA19 PO (23:28)
[2017-08-03] MEDS ORDERED: CETI-102 PO (23:28)
[2017-08-04] VITALS: BP 100/76
[2017-08-04 04:38] LABS: BASOPHILS % (AUTO) 0.4 % (0-1); EOSINOPHILS # (AUTO) 0.4 X10'3 (0-0.9); EOSINOPHILS % (AUTO) 3.3 % (0-6); HEMATOCRIT 38.7 % (42.0-52.0); HEMOGLOBIN 12.9 g/dl (14.0-17.9); LYMPHOCYTES # (AUTO) 1.9 X10'3 (1.1-4.8); LYMPHOCYTES % (AUTO) 17.4 % (21-51); MEAN CORPUSCULAR HEMOGLOBIN 27.5 PG (27.0-31.0); MEAN CORPUSCULAR HGB CONC 33.3 % (33.0-36.5); MEAN CORPUSCULAR VOLUME 82.5 FL (78-98); MEAN PLATELET VOLUME 7.1 FL (7.4-10.4); MONOCYTES # (AUTO) 0.7 X10'3 (0-0.9); MONOCYTES % (AUTO) 6.3 % (2-12); NEUTROPHILS # (AUTO) 7.8 X10'3 (1.8-7.7); NEUTROPHILS % (AUTO) 72.6 % (42-75); PLATELET COUNT 236 X10'3 (140-440); RED BLOOD COUNT 4.69 X10'6 (4.70-6.10); RED CELL DISTRIBUTION WIDTH 16.9 % (11.5-14.5); WHITE BLOOD COUNT 10.7 X10'3 (4.5-11.0)
[2017-08-04 06:14] LABS: ALBUMIN 3.1 G/DL (3.4-5.0); ANION GAP 10 (8-16); BLOOD UREA NITROGEN 23 MG/DL (7-18); BUN/CREATININE RATIO 20.2 (5.4-32.0); CALCIUM 9.5 MG/DL (8.5-10.1); CHLORIDE 96 MMOL/L (99-107); CREATININE 1.14 MG/DL (0.60-1.10); GLUCOSE 156 MG/DL (70-104); MAGNESIUM 1.8 MG/DL (1.5-2.4); SODIUM 140 MMOL/L (135-145); TOTAL CARBON DIOXIDE 33.9 MMOL/L (24-32); TROPONIN I 0.12 NG/ML (0.0-0.05); eGFR 72 ML/MIN
[2017-08-04 06:28] LABS: POTASSIUM 2.5 MMOL/L (3.5-5.1)
[2017-08-04] MEDS: sacubitril/valsartan 49mg-51mg tablet PO SCH ×2 (08:00→20:09)
[2017-08-04] MEDS ORDERED: buPROPion SR 150mg tablet PO SCH (08:00)
[2017-08-04 08:18] VITALS: BP 118/68
[2017-08-04] MEDS: metolazone 2.5mg tablet PO SCH ×2 (08:58→20:02)
[2017-08-04] MEDS: bumetanide 1mg tablet PO SCH ×2 (08:59→20:01)
[2017-08-04] MEDS: carVEDilol 12.5mg tablet PO SCH ×2 (08:59→20:03)
[2017-08-04] MEDS: apixaban 5mg tablet PO SCH ×2 (08:59→20:03)
[2017-08-04] MEDS: amiodarone 200mg tablet PO SCH (08:59)
[2017-08-04] MEDS: spironolactone 25 MG tablet PO SCH ×2 (08:59→20:01)
[2017-08-04] MEDS: potassium Cl 20 mEq SR tablet PO SCH ×3 (08:59→20:00)
[2017-08-04] MEDS: aspirin 81mg tab.chew PO SCH (08:59)
[2017-08-04 12:27] VITALS: BP 105/69
[2017-08-04] MEDS: buPROPion SR 150mg tablet PO SCH ×2 (13:28→20:00)
[2017-08-04 19:00] VITALS: BP 125/73
[2017-08-05] VITALS: BP 100/76
[2017-08-05] MEDS ORDERED: potassium Cl 20 mEq SR tablet PO SCH ×2 (01:00→08:07)
[2017-08-05 05:27] LABS: BASOPHILS % (AUTO) 0.4 % (0-1); EOSINOPHILS # (AUTO) 0.4 X10'3 (0-0.9); EOSINOPHILS % (AUTO) 3.4 % (0-6); HEMATOCRIT 39.4 % (42.0-52.0); HEMOGLOBIN 13.2 g/dl (14.0-17.9); LYMPHOCYTES # (AUTO) 1.6 X10'3 (1.1-4.8); MEAN CORPUSCULAR HEMOGLOBIN 27.4 PG (27.0-31.0); MEAN CORPUSCULAR HGB CONC 33.5 % (33.0-36.5); MEAN CORPUSCULAR VOLUME 81.8 FL (78-98); MEAN PLATELET VOLUME 7.3 FL (7.4-10.4); MONOCYTES # (AUTO) 0.7 X10'3 (0-0.9); MONOCYTES % (AUTO) 6.2 % (2-12); NEUTROPHILS # (AUTO) 8.9 X10'3 (1.8-7.7); PLATELET COUNT 239 X10'3 (140-440); RED BLOOD COUNT 4.81 X10'6 (4.70-6.10); RED CELL DISTRIBUTION WIDTH 16.9 % (11.5-14.5); WHITE BLOOD COUNT 11.7 X10'3 (4.5-11.0)
[2017-08-05 05:50] LABS: ALBUMIN 3.3 G/DL (3.4-5.0); ANION GAP 11 (8-16); BLOOD UREA NITROGEN 26 MG/DL (7-18); CALCIUM 9.9 MG/DL (8.5-10.1); CHLORIDE 95 MMOL/L (99-107); CREATININE 1.18 MG/DL (0.60-1.10); GLUCOSE 146 MG/DL (70-104); MAGNESIUM 1.8 MG/DL (1.5-2.4); SODIUM 137 MMOL/L (135-145); TOTAL CARBON DIOXIDE 30.8 MMOL/L (24-32); eGFR 69 ML/MIN
[2017-08-05 06:43] LABS: POTASSIUM 2.9 MMOL/L (3.5-5.1)
[2017-08-05] MEDS: spironolactone 25 MG tablet PO SCH (07:54)
[2017-08-05] MEDS: aspirin 81mg tab.chew PO SCH (07:54)
[2017-08-05] MEDS: bumetanide 1mg tablet PO SCH (07:55)
[2017-08-05] MEDS: carVEDilol 12.5mg tablet PO SCH (07:55)
[2017-08-05] MEDS: amiodarone 200mg tablet PO SCH (07:55)
[2017-08-05] MEDS: apixaban 5mg tablet PO SCH (07:56)
[2017-08-05 08:00] VITALS: BP 112/70
[2017-08-05] MEDS ORDERED: potassium chloride 10mEq CAPSULE.SA PO SCH (08:00)
[2017-08-05] MEDS: potassium Cl 20 mEq SR tablet PO SCH ×3 (08:02→16:47)
[2017-08-05] MEDS: metolazone 2.5mg tablet PO SCH (08:03)
[2017-08-05] MEDS ORDERED: sacubitril/valsartan 24mg-26mg tablet PO SCH (08:03)
[2017-08-05] MEDS ORDERED: SACU1TAB PO (08:03)
[2017-08-05] MEDS: buPROPion SR 150mg tablet PO SCH (08:04)
[2017-08-05 11:33] VITALS: BP 125/67
[2017-08-05] MEDS ORDERED: POTA20TA19 PO (16:39)
== END 2017-08-05 18:57 | disposition home or self-care (01) | DRG 425 ==
LOC: ER 14:52 → ED HOLD 20:57 → EDBEDREQ 08-04 05:15 → SUR 3N 08-04 06:55
PROVIDERS: ADMIT Internal Medicine; ATTEND Internal Medicine
DX: E87.6 Hypokalemia (principal); I42.0 Dilated cardiomyopathy; I11.0 Hypertensive heart disease with heart failure; E66.01 Morbid (severe) obesity due to excess calories; I48.2 Chronic atrial fibrillation; I50.20 Unspecified systolic (congestive) heart failure; J44.9 Chronic obstructive pulmonary disease, unspecified; G47.33 Obstructive sleep apnea (adult) (pediatric); K21.9 Gastro-esophageal reflux disease without esophagitis; R73.03 Prediabetes; E78.00 Pure hypercholesterolemia, unspecified; E78.5 Hyperlipidemia, unspecified; F32.9 Major depressive disorder, single episode, unspecified; F41.9 Anxiety disorder, unspecified; I25.10 Atherosclerotic heart disease of native coronary artery without angina pectoris; Z79.01 Long term (current) use of anticoagulants; I25.2 Old myocardial infarction; Z95.810 Presence of automatic (implantable) cardiac defibrillator; Z82.49 Family history of ischemic heart disease and other diseases of the circulatory system; Z87.891 Personal history of nicotine dependence; Z68.23 Body mass index [BMI] 23.0-23.9, adult
CPT/HCPCS: 36415; 71045; 80048; 80053; 83735; 84132; 84484; 85025; 85610; 85730; 87070; 93005; 99285; J3480

== ENCOUNTER 2017-08-12 14:17 | Outpatient (CLI) | payer MEDICAID ==
[~2017-08-12 14:17] MED LIST changes: +ATOR20TA PO; +CETI-102 PO; -LORA10TA61 PO; +POTA20TA19 PO; +SACU1TAB PO; -SACU1TAB7 PO; -SIMV10TA2 PO; +TIOT4MIS3 INH
[2017-08-12 15:11] LABS: ALBUMIN 3.3 G/DL (3.4-5.0); ANION GAP 7 (8-16); BLOOD UREA NITROGEN 18 MG/DL (7-18); BUN/CREATININE RATIO 13.4 (5.4-32.0); CALCIUM 9.3 MG/DL (8.5-10.1); CHLORIDE 99 MMOL/L (99-107); CREATININE 1.34 MG/DL (0.60-1.10); GLUCOSE 117 MG/DL (70-104); POTASSIUM 3.5 MMOL/L (3.5-5.1); SODIUM 139 MMOL/L (135-145); TOTAL CARBON DIOXIDE 32.7 MMOL/L (24-32); eGFR 59 ML/MIN
== END 2017-08-12 23:59 | disposition home or self-care (01) ==
LOC: LAB 14:17
DX: I11.0 Hypertensive heart disease with heart failure (principal); I50.22 Chronic systolic (congestive) heart failure; J44.9 Chronic obstructive pulmonary disease, unspecified; E87.6 Hypokalemia; I25.10 Atherosclerotic heart disease of native coronary artery without angina pectoris; Z87.891 Personal history of nicotine dependence
CPT/HCPCS: 36415; 80048; 83880

== ENCOUNTER 2017-08-15 13:35 | Observation (INO) | payer MEDICAID ==
[~2017-08-15] VITALS: Ht 193 cm; Wt 191.7 kg
[2017-08-15 14:16] LABS: BASOPHILS % (AUTO) 0.3 % (0-1); EOSINOPHILS # (AUTO) 0.3 X10'3 (0-0.9); EOSINOPHILS % (AUTO) 2.5 % (0-6); HEMATOCRIT 39.9 % (42.0-52.0); HEMOGLOBIN 13.2 g/dl (14.0-17.9); LYMPHOCYTES # (AUTO) 1.8 X10'3 (1.1-4.8); LYMPHOCYTES % (AUTO) 16.3 % (21-51); MEAN CORPUSCULAR HEMOGLOBIN 27.1 PG (27.0-31.0); MEAN CORPUSCULAR HGB CONC 33.1 % (33.0-36.5); MEAN PLATELET VOLUME 6.8 FL (7.4-10.4); MONOCYTES # (AUTO) 0.7 X10'3 (0-0.9); MONOCYTES % (AUTO) 6.2 % (2-12); NEUTROPHILS # (AUTO) 8.4 X10'3 (1.8-7.7); NEUTROPHILS % (AUTO) 74.7 % (42-75); PLATELET COUNT 265 X10'3 (140-440); RED BLOOD COUNT 4.87 X10'6 (4.70-6.10); RED CELL DISTRIBUTION WIDTH 16.4 % (11.5-14.5); WHITE BLOOD COUNT 11.3 X10'3 (4.5-11.0)
[2017-08-15] MEDS ORDERED: nitroGLYCERIN 1gm ointment UD TP ONE (14:25)
[2017-08-15] MEDS ORDERED: cloNIDine 0.1 mg tablet PO ONE (14:25)
[2017-08-15 14:58] LABS: PROTHROMBIN TIME 10.5 SECONDS (9.0-12.0)
[2017-08-15 15:22] LABS: ALANINE AMINOTRANSFERASE 38 U/L (12-78); ALBUMIN 3.3 G/DL (3.4-5.0); ALBUMIN/GLOBULIN RATIO 0.8 (1.1-1.5); ALKALINE PHOSPHATASE 59 IU/L (46-116); ANION GAP 8 (8-16); ASPARTATE AMINO TRANSFERASE 20 U/L (10-37); BILIRUBIN,TOTAL 0.3 MG/DL (0.1-1.0); BLOOD UREA NITROGEN 29 MG/DL (7-18); BUN/CREATININE RATIO 25.4 (5.4-32.0); CALCIUM 9.9 MG/DL (8.5-10.1); CHLORIDE 98 MMOL/L (99-107); CREATININE 1.14 MG/DL (0.60-1.10); GLUCOSE 113 MG/DL (70-104); MAGNESIUM 1.7 MG/DL (1.5-2.4); SODIUM 139 MMOL/L (135-145); TOTAL CARBON DIOXIDE 33.2 MMOL/L (24-32); TOTAL PROTEIN 7.6 G/DL (6.4-8.2); eGFR 72 ML/MIN
[2017-08-15 15:27] LABS: POTASSIUM 2.7 MMOL/L (3.5-5.1)
[2017-08-15] MEDS: potassium 10mEq/100ml NS w/LIDOcaine (10mg/bag) IV SCH ×2 (15:57→17:15)
[2017-08-15] MEDS ORDERED: HYDROcodone/acetaminophen 5mg/325mg tablet PO PRN (16:25)
[2017-08-15] MEDS ORDERED: mag hydrox/Alum hydrox/simeth 30ml oral suspension PO PRN (16:25)
[2017-08-15] MEDS ORDERED: magnesium hydroxide 30ml (MOM) UD suspension PO PRN (16:25)
[2017-08-15] MEDS ORDERED: potassium Cl 20 mEq SR tablet PO PRN (16:25)
[2017-08-15] MEDS ORDERED: acetaminophen 325mg tablet PO PRN ×2 (16:25)
[2017-08-15] MEDS ORDERED: ondansetron/PF 4mg/2ml inj IV PRN (16:25)
[2017-08-15] MEDS ORDERED: potassium Cl 40MEQ/NS 500ml 500 ML IV PRN (16:25)
[2017-08-15] MEDS ORDERED: LORazepam 0.5 MG tablet PO PRN (16:30)
[2017-08-15] MEDS: magnesium oxide 400mg tablet PO SCH (16:42)
[2017-08-15] MEDS: amiodarone 200mg tablet PO SCH (16:42)
[2017-08-15] MEDS: potassium Cl 20 mEq SR tablet PO PRN ×2 (16:42→21:29)
[2017-08-15 17:56] LABS: CLARITY,URINE Clear (Clear); COLOR,URINE Yellow (Yellow); GLUCOSE, URINE Negative (Neg); KETONES,URINE Negative (Neg); LEUKOCYTE ESTERASE ,URINE Negative (Neg); NITRITES, URINE Negative (Neg); OCCULT BLOOD,URINE Negative (Neg); PH,URINE 7.5 (4.8-8.0); PROTEIN,URINE Negative (Neg); UROBILINOGEN,URINE 0.2 E.U/dL (0.2-1.0)
[2017-08-15 18:00] LABS: UA COLLECTION TYPE CLN CATCH MIDSTREAM
[2017-08-15 18:06] LABS: URINE AMPHETAMINE SCREEN NEGATIVE (Neg); URINE BARBITUATE SCREEN NEGATIVE (Neg); URINE BENZODIAZEPINES SCREEN NEGATIVE (Neg); URINE CANNABINOID SCREEN NEGATIVE (Neg); URINE COCAINE SCREEN NEGATIVE (Neg); URINE METHADONE SCREEN NEGATIVE (Neg); URINE OPIATE SCREEN NEGATIVE (Neg); URINE PHENCYCLIDINE SCREEN NEGATIVE (Neg)
[2017-08-15 19:00] VITALS: BP 127/76
[2017-08-15] MEDS ORDERED: temazepam 15mg capsule PO PRN (21:00)
[2017-08-15] MEDS: carVEDilol 12.5mg tablet PO SCH (21:15)
[2017-08-15] MEDS: spironolactone 25 MG tablet PO SCH (21:15)
[2017-08-15] MEDS: apixaban 5mg tablet PO SCH (21:15)
[2017-08-15] MEDS: sacubitril/valsartan 24mg-26mg tablet PO SCH (21:20)
[2017-08-15 23:00] VITALS: BP 97/78
[2017-08-16] MEDS: potassium Cl 20 mEq SR tablet PO PRN ×2 (01:48→18:10)
[2017-08-16 03:00] VITALS: BP 117/60
[2017-08-16 05:32] LABS: BASOPHILS % (AUTO) 0.4 % (0-1); EOSINOPHILS # (AUTO) 0.3 X10'3 (0-0.9); EOSINOPHILS % (AUTO) 3.1 % (0-6); HEMATOCRIT 37.3 % (42.0-52.0); HEMOGLOBIN 12.4 g/dl (14.0-17.9); LYMPHOCYTES % (AUTO) 17.8 % (21-51); MEAN CORPUSCULAR HEMOGLOBIN 27.5 PG (27.0-31.0); MEAN CORPUSCULAR HGB CONC 33.2 % (33.0-36.5); MEAN CORPUSCULAR VOLUME 82.8 FL (78-98); MEAN PLATELET VOLUME 7.3 FL (7.4-10.4); MONOCYTES # (AUTO) 0.6 X10'3 (0-0.9); MONOCYTES % (AUTO) 5.5 % (2-12); NEUTROPHILS # (AUTO) 8.2 X10'3 (1.8-7.7); NEUTROPHILS % (AUTO) 73.2 % (42-75); PLATELET COUNT 235 X10'3 (140-440); RED BLOOD COUNT 4.51 X10'6 (4.70-6.10); WHITE BLOOD COUNT 11.2 X10'3 (4.5-11.0)
[2017-08-16 06:02] LABS: ANION GAP 8 (8-16); BLOOD UREA NITROGEN 28 MG/DL (7-18); BUN/CREATININE RATIO 24.6 (5.4-32.0); CALCIUM 9.4 MG/DL (8.5-10.1); CHLORIDE 99 MMOL/L (99-107); CREATININE 1.14 MG/DL (0.60-1.10); GLUCOSE 129 MG/DL (70-104); MAGNESIUM 1.7 MG/DL (1.5-2.4); SODIUM 139 MMOL/L (135-145); TOTAL CARBON DIOXIDE 32.1 MMOL/L (24-32); eGFR 72 ML/MIN
[2017-08-16] MEDS ORDERED: atorvastatin 20mg tablet PO SCH (08:00)
[2017-08-16] MEDS ORDERED: STIOLTO RESPIMAT PO SCH (08:00)
[2017-08-16] MEDS ORDERED: cetirizine 10mg tablet PO SCH (08:00)
[2017-08-16] MEDS ORDERED: bumetanide 1mg tablet PO SCH (08:00)
[2017-08-16] MEDS ORDERED: aspirin 81mg tab.chew PO SCH (08:00)
[2017-08-16] MEDS: apixaban 5mg tablet PO SCH (08:13)
[2017-08-16] MEDS: sacubitril/valsartan 24mg-26mg tablet PO SCH (08:14)
[2017-08-16] MEDS: carVEDilol 12.5mg tablet PO SCH (08:15)
[2017-08-16] MEDS: magnesium oxide 400mg tablet PO SCH (08:15)
[2017-08-16] MEDS: amiodarone 200mg tablet PO SCH (08:15)
[2017-08-16] MEDS: spironolactone 25 MG tablet PO SCH (08:15)
[2017-08-16] MEDS: potassium Cl 40MEQ/NS 500ml 500 ML IV PRN ×2 (09:00→13:09)
[2017-08-17] MEDS ORDERED: ARIP5TAB4 PO (14:01)
== END 2017-08-16 19:14 | disposition home or self-care (01) ==
LOC: ER 13:36 → ED HOLD 16:21 → PCU 3S 18:50
PROVIDERS: ADMIT Family Medicine; ATTEND Family Medicine
DX: E87.6 Hypokalemia (principal); I47.2 Ventricular tachycardia; I48.91 Unspecified atrial fibrillation; I42.0 Dilated cardiomyopathy; I13.0 Hypertensive heart and chronic kidney disease with heart failure and stage 1 through stage 4 chronic kidney disease, or unspecified chronic kidney disease; I50.22 Chronic systolic (congestive) heart failure; N18.2 Chronic kidney disease, stage 2 (mild); K21.9 Gastro-esophageal reflux disease without esophagitis; J44.9 Chronic obstructive pulmonary disease, unspecified; I25.10 Atherosclerotic heart disease of native coronary artery without angina pectoris; E66.01 Morbid (severe) obesity due to excess calories; E78.00 Pure hypercholesterolemia, unspecified; J45.909 Unspecified asthma, uncomplicated; F41.9 Anxiety disorder, unspecified; F32.9 Major depressive disorder, single episode, unspecified; I25.2 Old myocardial infarction; Z87.891 Personal history of nicotine dependence; Z95.810 Presence of automatic (implantable) cardiac defibrillator
CPT/HCPCS: 36415; 71045; 80048; 80053; 80305; 81003; 83735; 83880; 84132; 84443; 85025; 85610; 87070; 93005; 96365; 96366; 99285; A6257; G0378; J3480

== ENCOUNTER 2017-08-17 11:02 | Inpatient (IN) | payer MEDICAID ==
[~2017-08-17] VITALS: Ht 190.5 cm; Wt 188.0 kg
[~2017-08-17 11:02] MED LIST changes: -BUPR150T6 PO; -METO5TAB7 PO
[2017-08-17 11:35] LABS: BASOPHILS % (AUTO) 0.1 % (0-1); EOSINOPHILS # (AUTO) 0.3 X10'3 (0-0.9); EOSINOPHILS % (AUTO) 2.2 % (0-6); HEMOGLOBIN 13.2 g/dl (14.0-17.9); LYMPHOCYTES # (AUTO) 0.5 X10'3 (1.1-4.8); LYMPHOCYTES % (AUTO) 4.2 % (21-51); MEAN CORPUSCULAR HEMOGLOBIN 27.4 PG (27.0-31.0); MEAN CORPUSCULAR VOLUME 83.2 FL (78-98); MEAN PLATELET VOLUME 6.9 FL (7.4-10.4); MONOCYTES # (AUTO) 0.5 X10'3 (0-0.9); MONOCYTES % (AUTO) 3.9 % (2-12); NEUTROPHILS # (AUTO) 10.4 X10'3 (1.8-7.7); NEUTROPHILS % (AUTO) 89.6 % (42-75); PLATELET COUNT 250 X10'3 (140-440); RED BLOOD COUNT 4.81 X10'6 (4.70-6.10); RED CELL DISTRIBUTION WIDTH 17.5 % (11.5-14.5); WHITE BLOOD COUNT 11.7 X10'3 (4.5-11.0)
[2017-08-17 11:45] LABS: INR 1.1 INR; PARTIAL THROMBOPLASTIN TIME 27 SECONDS (22-32); PROTHROMBIN TIME 10.9 SECONDS (9.0-12.0)
[2017-08-17 11:50] LABS: ALANINE AMINOTRANSFERASE 32 U/L (12-78); ALBUMIN/GLOBULIN RATIO 0.8 (1.1-1.5); ALKALINE PHOSPHATASE 53 IU/L (46-116); ANION GAP 8 (8-16); ASPARTATE AMINO TRANSFERASE 17 U/L (10-37); BILIRUBIN,TOTAL 0.7 MG/DL (0.1-1.0); BLOOD UREA NITROGEN 27 MG/DL (7-18); BUN/CREATININE RATIO 22.7 (5.4-32.0); CALCIUM 8.8 MG/DL (8.5-10.1); CHLORIDE 99 MMOL/L (99-107); CREATININE 1.19 MG/DL (0.60-1.10); GLUCOSE 129 MG/DL (70-104); POTASSIUM 3.4 MMOL/L (3.5-5.1); SODIUM 137 MMOL/L (135-145); TOTAL CARBON DIOXIDE 30.2 MMOL/L (24-32); eGFR 68 ML/MIN
[2017-08-17] MEDS ORDERED: potassium 10mEq/100ml NS w/LIDOcaine (10mg/bag) IV ONE (12:00)
[2017-08-17] MEDS ORDERED: normal saline 1000ML IV soln IVB ONE (12:00)
[2017-08-17] MEDS ORDERED: magnesium hydroxide 30ml (MOM) UD suspension PO PRN (13:55)
[2017-08-17] MEDS ORDERED: HYDROcodone/acetaminophen 5mg/325mg tablet PO PRN (13:55)
[2017-08-17] MEDS ORDERED: potassium Cl 40MEQ/NS 500ml 500 ML IV PRN ×2 (13:55)
[2017-08-17] MEDS ORDERED: metoclopramide 5 mg/ml inj IV PRN (13:55)
[2017-08-17] MEDS ORDERED: mag hydrox/Alum hydrox/simeth 30ml oral suspension PO PRN (13:55)
[2017-08-17] MEDS ORDERED: potassium Cl 20 mEq SR tablet PO PRN (13:55)
[2017-08-17] MEDS ORDERED: acetaminophen 325mg tablet PO PRN (13:55)
[2017-08-17] MEDS ORDERED: ondansetron/PF 4mg/2ml inj IV PRN (13:55)
[2017-08-17] MEDS ORDERED: magnesium 2GM in 50ml NS 50 ML IV PRN (13:55)
[2017-08-17] MEDS ORDERED: magnesium 4gm in 100ml NS 100 ML IV PRN (13:55)
[2017-08-17] MEDS ORDERED: ARIP5TAB4 PO (14:01)
[2017-08-17] MEDS ORDERED: LORazepam 0.5 MG tablet PO PRN (14:10)
[2017-08-17] MEDS ORDERED: nitroGLYCERIN 0.4mg SUBLingual tab SL PRN (14:10)
[2017-08-17] MEDS ORDERED: albuterol 2.5 MG/3 ML nebule NEB PRN (14:15)
[2017-08-17] MEDS: Tiotropium Br/Olodaterol HCl (Stiolto Respimat Inhal Spray) IH SCH (14:20)
[2017-08-17] MEDS: aspirin 81mg tab.chew PO SCH (14:23)
[2017-08-17] MEDS: K and/or MAG REPLACEMENT MC SCH (14:30)
[2017-08-17 19:00] VITALS: BP 111/79
[2017-08-17] MEDS: apixaban 5mg tablet PO SCH (19:20)
[2017-08-17] MEDS: spironolactone 25 MG tablet PO SCH (19:21)
[2017-08-17] MEDS: potassium Cl 20 mEq SR tablet PO SCH (20:54)
[2017-08-17] MEDS ORDERED: temazepam 15mg capsule PO PRN (21:00)
[2017-08-17] MEDS: carVEDilol 12.5mg tablet PO SCH (21:03)
[2017-08-17 22:55] VITALS: BP 103/71
[2017-08-18 03:00] VITALS: BP 121/63
[2017-08-18] MEDS: acetaminophen 325mg tablet PO PRN ×2 (04:19→19:34)
[2017-08-18 05:18] LABS: BASOPHILS % (AUTO) 0.3 % (0-1); EOSINOPHILS # (AUTO) 0.2 X10'3 (0-0.9); EOSINOPHILS % (AUTO) 3.1 % (0-6); HEMATOCRIT 35.2 % (42.0-52.0); HEMOGLOBIN 11.6 g/dl (14.0-17.9); LYMPHOCYTES # (AUTO) 1.2 X10'3 (1.1-4.8); LYMPHOCYTES % (AUTO) 21.3 % (21-51); MEAN CORPUSCULAR HEMOGLOBIN 27.2 PG (27.0-31.0); MEAN CORPUSCULAR HGB CONC 32.8 % (33.0-36.5); MEAN PLATELET VOLUME 7.1 FL (7.4-10.4); MONOCYTES # (AUTO) 0.6 X10'3 (0-0.9); NEUTROPHILS # (AUTO) 3.6 X10'3 (1.8-7.7); NEUTROPHILS % (AUTO) 65.3 % (42-75); PLATELET COUNT 188 X10'3 (140-440); RED BLOOD COUNT 4.24 X10'6 (4.70-6.10); RED CELL DISTRIBUTION WIDTH 17.3 % (11.5-14.5); WHITE BLOOD COUNT 5.5 X10'3 (4.5-11.0)
[2017-08-18 05:31] LABS: ALBUMIN 2.7 G/DL (3.4-5.0); ANION GAP 9 (8-16); BLOOD UREA NITROGEN 22 MG/DL (7-18); BUN/CREATININE RATIO 19.5 (5.4-32.0); CALCIUM 8.1 MG/DL (8.5-10.1); CHLORIDE 99 MMOL/L (99-107); CREATININE 1.13 MG/DL (0.60-1.10); GLUCOSE 127 MG/DL (70-104); MAGNESIUM 1.4 MG/DL (1.5-2.4); SODIUM 138 MMOL/L (135-145); TOTAL CARBON DIOXIDE 30.3 MMOL/L (24-32); eGFR 72 ML/MIN
[2017-08-18 06:31] LABS: POTASSIUM 2.8 MMOL/L (3.5-5.1)
[2017-08-18 07:00] VITALS: BP 122/70
[2017-08-18] MEDS: spironolactone 25 MG tablet PO SCH ×3 (07:53→20:02)
[2017-08-18] MEDS: magnesium oxide 400mg tablet PO SCH (07:54)
[2017-08-18] MEDS: amiodarone 200mg tablet PO SCH (07:54)
[2017-08-18] MEDS: apixaban 5mg tablet PO SCH ×2 (07:54→19:29)
[2017-08-18] MEDS: atorvastatin 20mg tablet PO SCH (07:54)
[2017-08-18] MEDS: aspirin 81mg tab.chew PO SCH (07:54)
[2017-08-18] MEDS: cetirizine 10mg tablet PO SCH (07:54)
[2017-08-18] MEDS: carVEDilol 12.5mg tablet PO SCH ×2 (07:55→19:29)
[2017-08-18] MEDS: potassium Cl 20 mEq SR tablet PO SCH ×3 (07:55→20:02)
[2017-08-18] MEDS: aripiprazole 5mg tablet PO SCH (07:57)
[2017-08-18] MEDS: K and/or MAG REPLACEMENT MC SCH (08:00)
[2017-08-18] MEDS: Tiotropium Br/Olodaterol HCl (Stiolto Respimat Inhal Spray) IH SCH (08:00)
[2017-08-18] MEDS: potassium Cl 20 mEq SR tablet PO PRN ×2 (08:32→12:22)
[2017-08-18] MEDS: magnesium Cl slow-release 64mg tablet PO PRN ×2 (08:33→19:29)
[2017-08-18 11:00] VITALS: BP 95/51
[2017-08-18 15:00] VITALS: BP 112/68
[2017-08-18] MEDS: pantoprazole 40mg Tablet.DR PO SCH (15:40)
[2017-08-18] MEDS: metroNIDAZOLE-Flagyl 500mg/NS 100 ML IV SCH (15:41)
[2017-08-18 19:00] VITALS: BP 115/70
[2017-08-18 23:00] VITALS: BP 103/67
[2017-08-19] MEDS: metroNIDAZOLE-Flagyl 500mg/NS 100 ML IV SCH ×2 (00:12→07:24)
[2017-08-19 03:00] VITALS: BP 117/71
[2017-08-19 06:24] LABS: BASOPHILS % (AUTO) 0.3 % (0-1); EOSINOPHILS # (AUTO) 0.3 X10'3 (0-0.9); EOSINOPHILS % (AUTO) 4.2 % (0-6); HEMATOCRIT 35.9 % (42.0-52.0); HEMOGLOBIN 11.7 g/dl (14.0-17.9); LYMPHOCYTES # (AUTO) 1.4 X10'3 (1.1-4.8); LYMPHOCYTES % (AUTO) 21.4 % (21-51); MEAN CORPUSCULAR HEMOGLOBIN 27.3 PG (27.0-31.0); MEAN CORPUSCULAR HGB CONC 32.5 % (33.0-36.5); MEAN CORPUSCULAR VOLUME 83.7 FL (78-98); MEAN PLATELET VOLUME 7.1 FL (7.4-10.4); MONOCYTES # (AUTO) 0.5 X10'3 (0-0.9); MONOCYTES % (AUTO) 8.5 % (2-12); NEUTROPHILS # (AUTO) 4.2 X10'3 (1.8-7.7); NEUTROPHILS % (AUTO) 65.6 % (42-75); PLATELET COUNT 176 X10'3 (140-440); RED BLOOD COUNT 4.29 X10'6 (4.70-6.10); RED CELL DISTRIBUTION WIDTH 17.2 % (11.5-14.5); WHITE BLOOD COUNT 6.4 X10'3 (4.5-11.0)
[2017-08-19 06:41] LABS: ALBUMIN 2.6 G/DL (3.4-5.0); ANION GAP 7 (8-16); BLOOD UREA NITROGEN 16 MG/DL (7-18); BUN/CREATININE RATIO 15.8 (5.4-32.0); CALCIUM 8.5 MG/DL (8.5-10.1); CHLORIDE 103 MMOL/L (99-107); CREATININE 1.01 MG/DL (0.60-1.10); GLUCOSE 124 MG/DL (70-104); MAGNESIUM 1.7 MG/DL (1.5-2.4); POTASSIUM 3.4 MMOL/L (3.5-5.1); SODIUM 140 MMOL/L (135-145); eGFR 82 ML/MIN
[2017-08-19 07:00] VITALS: BP 135/76
[2017-08-19] MEDS: potassium Cl 20 mEq SR tablet PO SCH (07:23)
[2017-08-19] MEDS: pantoprazole 40mg Tablet.DR PO SCH (07:23)
[2017-08-19] MEDS: atorvastatin 20mg tablet PO SCH (07:23)
[2017-08-19] MEDS: aspirin 81mg tab.chew PO SCH (07:23)
[2017-08-19] MEDS: cetirizine 10mg tablet PO SCH (07:23)
[2017-08-19] MEDS: spironolactone 25 MG tablet PO SCH (07:23)
[2017-08-19] MEDS: magnesium oxide 400mg tablet PO SCH (07:23)
[2017-08-19] MEDS: apixaban 5mg tablet PO SCH (07:23)
[2017-08-19] MEDS: amiodarone 200mg tablet PO SCH (07:23)
[2017-08-19] MEDS: carVEDilol 12.5mg tablet PO SCH (07:24)
[2017-08-19] MEDS: aripiprazole 5mg tablet PO SCH (07:24)
[2017-08-19] MEDS: Tiotropium Br/Olodaterol HCl (Stiolto Respimat Inhal Spray) IH SCH (07:27)
[2017-08-19] MEDS: K and/or MAG REPLACEMENT MC SCH (07:28)
[2017-08-19] MEDS ORDERED: POTA20TA19 PO ×2 (10:19→10:23)
[2017-08-19] MEDS ORDERED: OMEP20TA23 PO (10:19)
[2017-08-19] MEDS ORDERED: METR500T4 PO (10:19)
== END 2017-08-19 11:13 | disposition home or self-care (01) | DRG 249 ==
LOC: ER 11:03 → OBSVTOIN 13:52 → ED HOLD 13:52 → PCU 3S 16:45 → CMPBEDREQ 19:41
PROVIDERS: ADMIT Family Medicine; ATTEND Internal Medicine
DX: A08.39 Other viral enteritis (principal); I42.0 Dilated cardiomyopathy; D68.9 Coagulation defect, unspecified; Z68.43 Body mass index [BMI] 50.0-59.9, adult; I50.22 Chronic systolic (congestive) heart failure; I13.0 Hypertensive heart and chronic kidney disease with heart failure and stage 1 through stage 4 chronic kidney disease, or unspecified chronic kidney disease; E66.01 Morbid (severe) obesity due to excess calories; J44.9 Chronic obstructive pulmonary disease, unspecified; E87.6 Hypokalemia; R00.0 Tachycardia, unspecified; N18.2 Chronic kidney disease, stage 2 (mild); I25.10 Atherosclerotic heart disease of native coronary artery without angina pectoris; E78.00 Pure hypercholesterolemia, unspecified; I25.2 Old myocardial infarction; F32.9 Major depressive disorder, single episode, unspecified; F41.9 Anxiety disorder, unspecified; I48.91 Unspecified atrial fibrillation; K21.9 Gastro-esophageal reflux disease without esophagitis; Z82.49 Family history of ischemic heart disease and other diseases of the circulatory system; Z87.891 Personal history of nicotine dependence; Z95.810 Presence of automatic (implantable) cardiac defibrillator
CPT/HCPCS: 36415; 71045; 80048; 80053; 83735; 84132; 84484; 85025; 85610; 85730; 87045; 87046; 87070; 87324; 87449; 89055; 93005; 96360; 99285; J3480; J3490; J7030

== ENCOUNTER 2017-10-04 12:18 | Outpatient (CLI) | payer MEDICAID ==
[~2017-10-04 12:18] MED LIST changes: +ARIP5TAB4 PO; +OMEP20TA23 PO; -SPIR25TA3 PO; +SPIR25TA5 PO
[2017-10-04 13:13] LABS: ALANINE AMINOTRANSFERASE 44 U/L (12-78); ALBUMIN 3.2 G/DL (3.4-5.0); ALBUMIN/GLOBULIN RATIO 0.7 (1.1-1.5); ALKALINE PHOSPHATASE 65 IU/L (46-116); ANION GAP 9 (8-16); ASPARTATE AMINO TRANSFERASE 23 U/L (10-37); BILIRUBIN,TOTAL 0.3 MG/DL (0.1-1.0); BLOOD UREA NITROGEN 27 MG/DL (7-18); BUN/CREATININE RATIO 22.3 (5.4-32.0); CHLORIDE 98 MMOL/L (99-107); CREATININE 1.21 MG/DL (0.60-1.10); GLUCOSE 171 MG/DL (70-104); MAGNESIUM 1.4 MG/DL (1.5-2.4); SODIUM 138 MMOL/L (135-145); TOTAL PROTEIN 7.7 G/DL (6.4-8.2); eGFR 67 ML/MIN
== END 2017-10-04 23:59 | disposition home or self-care (01) ==
LOC: LAB 12:18
DX: I11.0 Hypertensive heart disease with heart failure (principal); I50.9 Heart failure, unspecified; J44.9 Chronic obstructive pulmonary disease, unspecified; Z87.891 Personal history of nicotine dependence
CPT/HCPCS: 36415; 80053; 83735; 93005

== ENCOUNTER 2017-10-30 10:49 | Emergency (ER) | payer MEDICAID ==
[~2017-10-30] VITALS: Ht 193 cm; Wt 195.4 kg
[~2017-10-30 10:49] MED LIST changes: +AMIO200T54 PO; -AMIO200T57 PO
[2017-10-30 11:57] LABS: BASOPHILS % (AUTO) 0.3 % (0-1); EOSINOPHILS # (AUTO) 0.3 X10'3 (0-0.9); EOSINOPHILS % (AUTO) 2.4 % (0-6); HEMATOCRIT 42.8 % (42.0-52.0); HEMOGLOBIN 14.3 g/dl (14.0-17.9); LYMPHOCYTES # (AUTO) 1.5 X10'3 (1.1-4.8); LYMPHOCYTES % (AUTO) 13.5 % (21-51); MEAN CORPUSCULAR HEMOGLOBIN 27.4 PG (27.0-31.0); MEAN CORPUSCULAR HGB CONC 33.4 % (33.0-36.5); MEAN CORPUSCULAR VOLUME 82.1 FL (78-98); MEAN PLATELET VOLUME 7.3 FL (7.4-10.4); MONOCYTES # (AUTO) 0.5 X10'3 (0-0.9); MONOCYTES % (AUTO) 4.5 % (2-12); NEUTROPHILS # (AUTO) 8.7 X10'3 (1.8-7.7); NEUTROPHILS % (AUTO) 79.3 % (42-75); PLATELET COUNT 265 X10'3 (140-440); RED BLOOD COUNT 5.21 X10'6 (4.70-6.10); RED CELL DISTRIBUTION WIDTH 17.4 % (11.5-14.5)
[2017-10-30 12:09] LABS: PARTIAL THROMBOPLASTIN TIME 27 SECONDS (22-32); PROTHROMBIN TIME 10.5 SECONDS (9.0-12.0)
[2017-10-30 12:14] LABS: ALANINE AMINOTRANSFERASE 55 U/L (12-78); ALBUMIN 3.1 G/DL (3.4-5.0); ALBUMIN/GLOBULIN RATIO 0.7 (1.1-1.5); ALKALINE PHOSPHATASE 61 IU/L (46-116); ANION GAP 9 (8-16); ASPARTATE AMINO TRANSFERASE 24 U/L (10-37); BILIRUBIN,TOTAL 0.4 MG/DL (0.1-1.0); BLOOD UREA NITROGEN 29 MG/DL (7-18); BUN/CREATININE RATIO 17.6 (5.4-32.0); CALCIUM 9.4 MG/DL (8.5-10.1); CHLORIDE 96 MMOL/L (99-107); CREATININE 1.65 MG/DL (0.60-1.10); GLUCOSE 222 MG/DL (70-104); POTASSIUM 3.1 MMOL/L (3.5-5.1); SODIUM 135 MMOL/L (135-145); TOTAL CARBON DIOXIDE 30.5 MMOL/L (24-32); TOTAL PROTEIN 7.5 G/DL (6.4-8.2); eGFR 46 ML/MIN
[2017-10-30] MEDS ORDERED: nitroGLYCERIN 0.4mg SUBLingual tab SL PRN (12:15)
[2017-10-30 12:36] LABS: MAGNESIUM 1.3 MG/DL (1.5-2.4)
[2017-10-30] MEDS ORDERED: ipratropium/albuterol 3ml nebule NEB ONE ×2 (12:40→16:35)
[2017-10-30] MEDS ORDERED: potassium CL 10mEq/100ml bag 100 ML IV ONE (13:55)
[2017-10-30] MEDS ORDERED: potassium Cl 20 mEq SR tablet PO ONE (13:55)
[2017-10-30] MEDS ORDERED: potassium 10mEq/100ml NS w/LIDOcaine (10mg/bag) IV ONE (14:05)
[2017-10-30] MEDS: magnesium 1gm/100ml D5W IVPB 100 ML IV SCH ×2 (14:49→15:56)
[2017-10-30 17:35] VITALS: BP 125/59
== END 2017-10-30 17:50 | disposition home or self-care (01) ==
LOC: ER 10:50
DX: E87.6 Hypokalemia (principal); R06.02 Shortness of breath; E83.42 Hypomagnesemia; F15.90 Other stimulant use, unspecified, uncomplicated; I48.91 Unspecified atrial fibrillation; I25.10 Atherosclerotic heart disease of native coronary artery without angina pectoris; I11.0 Hypertensive heart disease with heart failure; I50.9 Heart failure, unspecified; I25.2 Old myocardial infarction; J44.9 Chronic obstructive pulmonary disease, unspecified; K21.9 Gastro-esophageal reflux disease without esophagitis; Z98.890 Other specified postprocedural states; Z95.0 Presence of cardiac pacemaker; Z79.82 Long term (current) use of aspirin; Z79.899 Other long term (current) drug therapy
CPT/HCPCS: 36415; 71045; 80053; 83735; 83880; 84484; 85025; 85610; 85730; 93005; 94640; 94760; 96365; 96366; 96368; 99285; J3480; A4620

== ENCOUNTER 2018-01-10 12:07 | Outpatient (CLI) | payer MEDICAID | END 2018-01-10 23:59 | disposition home or self-care (01) | LOC: RAD 12:07 | PROVIDERS: ATTEND Internal Medicine Cardiovascular Disease | DX: I11.0 Hypertensive heart disease with heart failure (principal); I50.23 Acute on chronic systolic (congestive) heart failure; R94.31 Abnormal electrocardiogram [ECG] [EKG]; J44.9 Chronic obstructive pulmonary disease, unspecified; K21.9 Gastro-esophageal reflux disease without esophagitis; Z79.82 Long term (current) use of aspirin; Z79.84 Long term (current) use of oral hypoglycemic drugs; Z87.891 Personal history of nicotine dependence | CPT/HCPCS: 93005 ==

== ENCOUNTER 2018-01-12 14:03 | Inpatient (IN) | payer MEDICAID ==
[~2018-01-12] VITALS: Ht 193 cm; Wt 188.5 kg
[2018-01-12] MEDS ORDERED: aspirin 81mg tab.chew PO ONE (14:20)
[2018-01-12] MEDS ORDERED: nitroGLYCERIN 0.4mg SUBLingual tab SL PRN ×3 (14:20→19:30)
[2018-01-12 14:50] LABS: HEMOGLOBIN 14.4 g/dl (14.0-17.9); RED BLOOD COUNT 5.09 X10'6 (4.70-6.10); WHITE BLOOD COUNT 10.7 X10'3 (4.5-11.0)
[2018-01-12 14:51] LABS: BASOPHILS # (AUTO) 0.1 X10'3 (0-0.2); BASOPHILS % (AUTO) 0.6 % (0-1); EOSINOPHILS # (AUTO) 0.2 X10'3 (0-0.9); EOSINOPHILS % (AUTO) 2.3 % (0-6); HEMATOCRIT 43.5 % (42.0-52.0); LYMPHOCYTES % (AUTO) 18.7 % (21-51); MEAN CORPUSCULAR HEMOGLOBIN 28.3 PG (27.0-31.0); MEAN CORPUSCULAR VOLUME 85.5 FL (78-98); MEAN PLATELET VOLUME 7.9 FL (7.4-10.4); MONOCYTES # (AUTO) 0.6 X10'3 (0-0.9); MONOCYTES % (AUTO) 5.6 % (2-12); NEUTROPHILS # (AUTO) 7.8 X10'3 (1.8-7.7); NEUTROPHILS % (AUTO) 72.8 % (42-75); PLATELET COUNT 282 X10'3 (140-440); RED CELL DISTRIBUTION WIDTH 15.5 % (11.5-14.5)
[2018-01-12 14:58] LABS: ALANINE AMINOTRANSFERASE 70 U/L (12-78); ALBUMIN 3.3 G/DL (3.4-5.0); ALBUMIN/GLOBULIN RATIO 0.8 (1.1-1.5); ALKALINE PHOSPHATASE 63 IU/L (46-116); ANION GAP 10 (8-16); ASPARTATE AMINO TRANSFERASE 35 U/L (10-37); BILIRUBIN,TOTAL 0.5 MG/DL (0.1-1.0); BLOOD UREA NITROGEN 31 MG/DL (7-18); BUN/CREATININE RATIO 22.3 (5.4-32.0); CALCIUM 9.6 MG/DL (8.5-10.1); CHLORIDE 98 MMOL/L (99-107); CREATININE 1.39 MG/DL (0.60-1.10); GLUCOSE 186 MG/DL (70-104); POTASSIUM 3.1 MMOL/L (3.5-5.1); SODIUM 137 MMOL/L (135-145); TOTAL CARBON DIOXIDE 28.6 MMOL/L (24-32); TOTAL PROTEIN 7.6 G/DL (6.4-8.2); eGFR 57 ML/MIN
[2018-01-12] MEDS ORDERED: heparin 10,000 units/1 ML INJ IV PRN ×2 (16:20→19:20)
[2018-01-12] MEDS ORDERED: heparin 10,000 units/1 ML INJ IV ONE ×2 (16:20→19:20)
[2018-01-12 16:53] LABS: PARTIAL THROMBOPLASTIN TIME 27 SECONDS (22-32); PROTHROMBIN TIME 10.3 SECONDS (9.0-12.0)
[2018-01-12] MEDS ORDERED: iohexol 350MG/ML 100ml bottle IV ONE (17:37)
[2018-01-12] MEDS: [UNRECOGNIZED DRUG - REMARK] PO NR (18:17)
[2018-01-12] MEDS ORDERED: METF500T7 PO (19:02)
[2018-01-12] MEDS ORDERED: DIGO125T PO (19:02)
[2018-01-12] MEDS ORDERED: potassium Cl 40MEQ/NS 500ml 500 ML IV PRN ×2 (19:20)
[2018-01-12] MEDS ORDERED: non-formulary drug (albuterol inhaler (Pro-Air Inhaler) 0 PUFFS) PO PRN (19:30)
[2018-01-12] MEDS ORDERED: BUMETANIDE PO SCH (20:00)
[2018-01-12 20:01] LABS: BASOPHILS # (AUTO) 0.1 X10'3 (0-0.2); BASOPHILS % (AUTO) 0.6 % (0-1); EOSINOPHILS # (AUTO) 0.2 X10'3 (0-0.9); EOSINOPHILS % (AUTO) 2.6 % (0-6); HEMOGLOBIN 13.6 g/dl (14.0-17.9); LYMPHOCYTES % (AUTO) 23.2 % (21-51); MEAN CORPUSCULAR HEMOGLOBIN 28.4 PG (27.0-31.0); MEAN CORPUSCULAR HGB CONC 33.3 % (33.0-36.5); MEAN CORPUSCULAR VOLUME 85.3 FL (78-98); MEAN PLATELET VOLUME 7.9 FL (7.4-10.4); MONOCYTES # (AUTO) 0.6 X10'3 (0-0.9); MONOCYTES % (AUTO) 7.4 % (2-12); NEUTROPHILS # (AUTO) 5.5 X10'3 (1.8-7.7); NEUTROPHILS % (AUTO) 66.2 % (42-75); PLATELET COUNT 210 X10'3 (140-440); RED CELL DISTRIBUTION WIDTH 15.1 % (11.5-14.5); WHITE BLOOD COUNT 8.4 X10'3 (4.5-11.0)
[2018-01-12 20:09] LABS: PARTIAL THROMBOPLASTIN TIME 34 SECONDS (22-32); PROTHROMBIN TIME 10.6 SECONDS (9.0-12.0)
[2018-01-12] MEDS ORDERED: albuterol 2.5 MG/3 ML nebule NEB PRN (20:10)
[2018-01-12] MEDS: carVEDilol 12.5mg tablet PO SCH (20:38)
[2018-01-12] MEDS: spironolactone 25 MG tablet PO SCH (21:59)
[2018-01-12] MEDS: sacubitril/valsartan 24mg-26mg tablet PO SCH (21:59)
[2018-01-12 22:00] VITALS: BP 128/82
[2018-01-13 01:22] LABS: ANION GAP 9 (8-16); BLOOD UREA NITROGEN 28 MG/DL (7-18); BUN/CREATININE RATIO 24.6 (5.4-32.0); CALCIUM 9.8 MG/DL (8.5-10.1); CHLORIDE 98 MMOL/L (99-107); CREATININE 1.14 MG/DL (0.60-1.10); GLUCOSE 126 MG/DL (70-104); MAGNESIUM 1.6 MG/DL (1.5-2.4); SODIUM 138 MMOL/L (135-145); TOTAL CARBON DIOXIDE 31.5 MMOL/L (24-32); eGFR 71 ML/MIN
[2018-01-13 01:35] LABS: POTASSIUM 2.7 MMOL/L (3.5-5.1)
[2018-01-13] MEDS: potassium Cl 20 mEq SR tablet PO PRN ×4 (01:48→23:19)
[2018-01-13 02:00] VITALS: BP 103/45
[2018-01-13 05:50] LABS: BASOPHILS # (AUTO) 0.1 X10'3 (0-0.2); BASOPHILS % (AUTO) 0.7 % (0-1); EOSINOPHILS # (AUTO) 0.3 X10'3 (0-0.9); HEMATOCRIT 38.6 % (42.0-52.0); HEMOGLOBIN 13.1 g/dl (14.0-17.9); LYMPHOCYTES # (AUTO) 2.2 X10'3 (1.1-4.8); LYMPHOCYTES % (AUTO) 25.7 % (21-51); MEAN CORPUSCULAR HEMOGLOBIN 28.9 PG (27.0-31.0); MEAN CORPUSCULAR HGB CONC 33.8 % (33.0-36.5); MEAN CORPUSCULAR VOLUME 85.3 FL (78-98); MONOCYTES # (AUTO) 0.6 X10'3 (0-0.9); MONOCYTES % (AUTO) 7.6 % (2-12); NEUTROPHILS # (AUTO) 5.2 X10'3 (1.8-7.7); PLATELET COUNT 198 X10'3 (140-440); RED BLOOD COUNT 4.52 X10'6 (4.70-6.10); RED CELL DISTRIBUTION WIDTH 15.8 % (11.5-14.5); WHITE BLOOD COUNT 8.4 X10'3 (4.5-11.0)
[2018-01-13 06:00] VITALS: BP 97/38
[2018-01-13] MEDS: ipratropium 0.5 MG/2.5ML nebule IH SCH ×4 (07:46→19:28)
[2018-01-13] MEDS ORDERED: MAGNESIUM 400 MG PO SCH (08:00)
[2018-01-13] MEDS ORDERED: nitroGLYCERIN 0.2mg/hour patch TD SCH (08:00)
[2018-01-13] MEDS ORDERED: non-formulary drug (Tiotropium Br/Olodaterol HCl (Stiolto Respimat Inhal Spray) 2 PUFFS) INH SCH (08:00)
[2018-01-13] MEDS: bumetanide 1mg tablet PO SCH ×3 (08:00→20:00)
[2018-01-13] MEDS ORDERED: non-formulary drug (Atorvastatin Calcium (Lipitor) 1 TAB) PO SCH (08:00)
[2018-01-13] MEDS: spironolactone 25 MG tablet PO SCH ×2 (08:01→20:13)
[2018-01-13] MEDS: carVEDilol 12.5mg tablet PO SCH ×2 (08:01→20:13)
[2018-01-13] MEDS: aripiprazole 5mg tablet PO SCH (08:02)
[2018-01-13] MEDS: atorvastatin 20mg tablet PO SCH (08:02)
[2018-01-13] MEDS: potassium Cl 20 mEq SR tablet PO SCH (08:02)
[2018-01-13] MEDS: aspirin 81mg tab.chew PO SCH (08:02)
[2018-01-13] MEDS: magnesium oxide 400mg tablet PO SCH (08:02)
[2018-01-13] MEDS: digoxin 125mcg (0.125mg) tablet PO SCH (08:05)
[2018-01-13] MEDS: MESSAGE TO NURSING PO NR ×2 (09:19→10:00)
[2018-01-13] MEDS: [UNRECOGNIZED DRUG - REMARK] PO NR (10:00)
[2018-01-13] MEDS: apixaban 5mg tablet PO SCH ×2 (10:41→20:12)
[2018-01-13] MEDS: sacubitril/valsartan 24mg-26mg tablet PO SCH ×2 (10:42→20:13)
[2018-01-13 11:00] VITALS: BP 108/43
[2018-01-13] MEDS ORDERED: potassium Cl 20 mEq SR tablet PO PRN ×2 (13:35)
[2018-01-13] MEDS ORDERED: potassium Cl 40MEQ/NS 500ml 500 ML IV PRN ×2 (13:35)
[2018-01-13] MEDS ORDERED: magnesium Cl slow-release 64mg tablet PO PRN (13:35)
[2018-01-13] MEDS ORDERED: magnesium 4gm in 100ml NS 100 ML IV PRN (13:35)
[2018-01-13] MEDS: K and/or MAG REPLACEMENT MC SCH (13:35)
[2018-01-13] MEDS ORDERED: magnesium 1gm/100ml D5W IVPB 100 ML IV PRN (13:35)
[2018-01-13] MEDS ORDERED: dextrose ORAL solution 15 GM/59 ML bottle PO PRN ×2 (13:45)
[2018-01-13] MEDS ORDERED: glucagon, human recombinant 1mg kit SUBCUT PRN (13:45)
[2018-01-13] MEDS ORDERED: dextrose 50%-water 50ml dispensing syringe IV PRN ×2 (13:45)
[2018-01-13] MEDS ORDERED: insulin Lispro (HumaLOG) vial - multi-dose SQ SCH (13:45)
[2018-01-13] MEDS ORDERED: MESSAGE TO PHARMACY PO ONE (13:45)
[2018-01-13 15:00] VITALS: BP 100/40
[2018-01-13 19:00] VITALS: BP 143/104
[2018-01-13] MEDS ORDERED: insulin glargine (Lantus) pen - multi-dose SQ SCH (21:00)
[2018-01-13 23:00] VITALS: BP 102/46
[2018-01-14 03:00] VITALS: BP 100/41
[2018-01-14] MEDS: ipratropium 0.5 MG/2.5ML nebule IH SCH ×2 (06:53→11:00)
[2018-01-14 06:54] LABS: ANION GAP 8 (8-16); BLOOD UREA NITROGEN 25 MG/DL (7-18); BUN/CREATININE RATIO 21.9 (5.4-32.0); CALCIUM 9.2 MG/DL (8.5-10.1); CHLORIDE 98 MMOL/L (99-107); CREATININE 1.14 MG/DL (0.60-1.10); GLUCOSE 121 MG/DL (70-104); MAGNESIUM 1.6 MG/DL (1.5-2.4); POTASSIUM 3.4 MMOL/L (3.5-5.1); SODIUM 137 MMOL/L (135-145); eGFR 71 ML/MIN
[2018-01-14 07:11] LABS: BASOPHILS % (AUTO) 0.5 % (0-1); EOSINOPHILS # (AUTO) 0.2 X10'3 (0-0.9); EOSINOPHILS % (AUTO) 2.8 % (0-6); HEMATOCRIT 38.6 % (42.0-52.0); HEMOGLOBIN 12.8 g/dl (14.0-17.9); LYMPHOCYTES # (AUTO) 1.7 X10'3 (1.1-4.8); LYMPHOCYTES % (AUTO) 20.6 % (21-51); MEAN CORPUSCULAR HEMOGLOBIN 28.2 PG (27.0-31.0); MEAN CORPUSCULAR HGB CONC 33.2 % (33.0-36.5); MEAN PLATELET VOLUME 7.8 FL (7.4-10.4); MONOCYTES # (AUTO) 0.6 X10'3 (0-0.9); MONOCYTES % (AUTO) 6.5 % (2-12); NEUTROPHILS % (AUTO) 69.6 % (42-75); PLATELET COUNT 225 X10'3 (140-440); RED BLOOD COUNT 4.54 X10'6 (4.70-6.10); RED CELL DISTRIBUTION WIDTH 15.8 % (11.5-14.5); WHITE BLOOD COUNT 8.5 X10'3 (4.5-11.0)
[2018-01-14] MEDS: K and/or MAG REPLACEMENT MC SCH (08:00)
[2018-01-14] MEDS: magnesium oxide 400mg tablet PO SCH (08:22)
[2018-01-14] MEDS: atorvastatin 20mg tablet PO SCH (08:22)
[2018-01-14] MEDS: apixaban 5mg tablet PO SCH (08:22)
[2018-01-14] MEDS: potassium Cl 20 mEq SR tablet PO SCH (08:23)
[2018-01-14] MEDS: aripiprazole 5mg tablet PO SCH (08:23)
[2018-01-14] MEDS: potassium Cl 20 mEq SR tablet PO PRN (08:23)
[2018-01-14] MEDS: aspirin 81mg tab.chew PO SCH (08:23)
[2018-01-14] MEDS: carVEDilol 12.5mg tablet PO SCH (08:23)
[2018-01-14] MEDS: bumetanide 1mg tablet PO SCH (08:23)
[2018-01-14] MEDS: digoxin 125mcg (0.125mg) tablet PO SCH (08:25)
[2018-01-14] MEDS: MESSAGE TO NURSING PO NR (10:00)
[2018-01-14] MEDS: [UNRECOGNIZED DRUG - REMARK] PO NR (10:00)
[2018-01-14] MEDS: spironolactone 25 MG tablet PO SCH (10:29)
[2018-01-14] MEDS: sacubitril/valsartan 24mg-26mg tablet PO SCH (10:29)
== END 2018-01-14 12:45 | disposition home or self-care (01) | DRG 190 ==
LOC: ER 14:03 → ED HOLD 19:04 → PCU 3S 21:13
PROVIDERS: ADMIT Hospitalist; ATTEND Internal Medicine
PROC: B32T1ZZ Computerized Tomography (CT Scan) of Left Pulmonary Artery using Low Osmolar Contrast (ICD-10-PCS; principal; 2018-01-12)
PROC: B3201ZZ Computerized Tomography (CT Scan) of Thoracic Aorta using Low Osmolar Contrast (ICD-10-PCS; 2018-01-12)
PROC: B32S1ZZ Computerized Tomography (CT Scan) of Right Pulmonary Artery using Low Osmolar Contrast (ICD-10-PCS; 2018-01-12)
DX: I21.4 Non-ST elevation (NSTEMI) myocardial infarction (principal); I42.9 Cardiomyopathy, unspecified; E11.22 Type 2 diabetes mellitus with diabetic chronic kidney disease; E66.01 Morbid (severe) obesity due to excess calories; I13.0 Hypertensive heart and chronic kidney disease with heart failure and stage 1 through stage 4 chronic kidney disease, or unspecified chronic kidney disease; I50.22 Chronic systolic (congestive) heart failure; I47.1 Supraventricular tachycardia; I48.0 Paroxysmal atrial fibrillation; G24.9 Dystonia, unspecified; E78.00 Pure hypercholesterolemia, unspecified; I25.10 Atherosclerotic heart disease of native coronary artery without angina pectoris; F41.9 Anxiety disorder, unspecified; F32.9 Major depressive disorder, single episode, unspecified; J45.909 Unspecified asthma, uncomplicated; J44.9 Chronic obstructive pulmonary disease, unspecified; K21.9 Gastro-esophageal reflux disease without esophagitis; G47.30 Sleep apnea, unspecified; F15.90 Other stimulant use, unspecified, uncomplicated; E78.5 Hyperlipidemia, unspecified; F17.200 Nicotine dependence, unspecified, uncomplicated; N18.9 Chronic kidney disease, unspecified; I44.7 Left bundle-branch block, unspecified; Z95.810 Presence of automatic (implantable) cardiac defibrillator; Z68.43 Body mass index [BMI] 50.0-59.9, adult; I25.2 Old myocardial infarction; Z95.0 Presence of cardiac pacemaker; Z79.82 Long term (current) use of aspirin; Z82.49 Family history of ischemic heart disease and other diseases of the circulatory system; Z79.899 Other long term (current) drug therapy; Z71.6 Tobacco abuse counseling; Z80.9 Family history of malignant neoplasm, unspecified; Z79.84 Long term (current) use of oral hypoglycemic drugs
CPT/HCPCS: 36415; 71045; 71275; 80048; 80053; 80162; 82948; 83036; 83735; 83880; 84132; 84484; 85025; 85610; 85730; 87070; 93005; 93306; 94640; 94760; 96374; 99291; J1644; J1815; J3480; Q9967

== ENCOUNTER 2018-03-22 15:18 | Inpatient (IN) | payer MEDICAID ==
[~2018-03-22] VITALS: Ht 193 cm; Wt 190.5 kg
[~2018-03-22 15:18] MED LIST changes: -AMIO200T54 PO; +DIGO125T PO; +METF500T7 PO; -OMEP20TA23 PO
[2018-03-22] MEDS ORDERED: normal saline 1000ML IV soln IVB ONE ×6 (15:55→22:15)
[2018-03-22 16:19] LABS: BASOPHILS % (AUTO) 0.5 % (0-1); EOSINOPHILS # (AUTO) 0.2 X10'3 (0-0.9); EOSINOPHILS % (AUTO) 2.6 % (0-6); HEMATOCRIT 42.7 % (42.0-52.0); HEMOGLOBIN 13.8 g/dl (14.0-17.9); LYMPHOCYTES # (AUTO) 1.1 X10'3 (1.1-4.8); LYMPHOCYTES % (AUTO) 13.2 % (21-51); MEAN CORPUSCULAR HEMOGLOBIN 27.6 PG (27.0-31.0); MEAN CORPUSCULAR HGB CONC 32.3 % (33.0-36.5); MEAN CORPUSCULAR VOLUME 85.4 FL (78-98); MEAN PLATELET VOLUME 7.7 FL (7.4-10.4); MONOCYTES # (AUTO) 0.8 X10'3 (0-0.9); MONOCYTES % (AUTO) 10.5 % (2-12); NEUTROPHILS # (AUTO) 5.9 X10'3 (1.8-7.7); NEUTROPHILS % (AUTO) 73.2 % (42-75); PLATELET COUNT 258 X10'3 (140-440); RED BLOOD COUNT 5.01 X10'6 (4.70-6.10); RED CELL DISTRIBUTION WIDTH 15.3 % (11.5-14.5)
[2018-03-22] MEDS ORDERED: oseltamivir phos 75mg capsule PO ONE (16:30)
[2018-03-22] MEDS ORDERED: CefTRIAXone/D5W-Rocephin 1gm 50 ML IV ONE (16:30)
[2018-03-22] MEDS ORDERED: acetaminophen 325mg tablet PO ONE ×2 (16:30→22:25)
[2018-03-22 16:48] LABS: INR 1.1 INR; PARTIAL THROMBOPLASTIN TIME 31 SECONDS (22-32); PROTHROMBIN TIME 11.3 SECONDS (9.0-12.0)
[2018-03-22 16:56] LABS: ALANINE AMINOTRANSFERASE 48 U/L (12-78); ALBUMIN 3.3 G/DL (3.4-5.0); ALBUMIN/GLOBULIN RATIO 0.8 (1.1-1.5); ALKALINE PHOSPHATASE 65 IU/L (46-116); ANION GAP 11 (8-16); ASPARTATE AMINO TRANSFERASE 28 U/L (10-37); BILIRUBIN,TOTAL 0.3 MG/DL (0.1-1.0); BLOOD UREA NITROGEN 14 MG/DL (7-18); CHLORIDE 100 MMOL/L (99-107); CREATININE 1.08 MG/DL (0.60-1.10); GLUCOSE 110 MG/DL (70-104); POTASSIUM 3.9 MMOL/L (3.5-5.1); SODIUM 137 MMOL/L (135-145); TOTAL CARBON DIOXIDE 26.5 MMOL/L (24-32); TOTAL PROTEIN 7.2 G/DL (6.4-8.2); eGFR 76 ML/MIN
[2018-03-22] MEDS ORDERED: BUME2TAB3 PO (17:30)
[2018-03-22] MEDS ORDERED: POTA20TA19 PO (17:30)
[2018-03-22] MEDS ORDERED: normal saline 1000ml 1,000 ML IV SCH (17:47)
[2018-03-22] MEDS ORDERED: morphine 2 MG/ML inj. syringe IV PRN ×2 (17:50)
[2018-03-22] MEDS ORDERED: acetaminophen 325mg tablet PO PRN (17:50)
[2018-03-22] MEDS ORDERED: magnesium hydroxide 30ml (MOM) UD suspension PO PRN (17:50)
[2018-03-22] MEDS ORDERED: ondansetron/PF 4mg/2ml inj IV PRN (17:50)
[2018-03-22] MEDS ORDERED: mag hydrox/Alum hydrox/simeth 30ml oral suspension PO PRN (17:50)
[2018-03-22] MEDS ORDERED: HYDROcodone/acetaminophen 5mg/325mg tablet PO PRN (17:50)
[2018-03-22 17:52] LABS: CLARITY,URINE CLEAR (Clear); COLOR,URINE YELLOW (Yellow); GLUCOSE, URINE NEGATIVE (Neg); KETONES,URINE NEGATIVE (Neg); LEUKOCYTE ESTERASE ,URINE NEGATIVE (Neg); NITRITES, URINE NEGATIVE (Neg); OCCULT BLOOD,URINE NEGATIVE (Neg); PROTEIN,URINE TRACE mg/dl (Neg); UROBILINOGEN,URINE 0.2 E.U/dL (0.2-1.0)
[2018-03-22] MEDS ORDERED: nitroGLYCERIN 0.4mg SUBLingual tab SL PRN (17:55)
[2018-03-22 17:59] LABS: UA COLLECTION TYPE CLN CATCH MIDSTREAM
[2018-03-22 18:01] LABS: HYALINE CASTS 0-3 /LPF (NEGATIVE); MUCUS STRANDS FEW /LPF (Neg); SQUAMOUS EPITHELIAL CELL,UR FEW /LPF (FEW)
[2018-03-22 18:02] LABS: BACTERIA,URINE FEW /HPF (Neg); RBC,URINE 0-2 /HPF (0-2); WBC,URINE 0-4 /HPF (0-4)
[2018-03-22] MEDS ORDERED: metFORMIN 500mg tablet PO SCH (20:00)
[2018-03-22] MEDS: carVEDilol 12.5mg tablet PO SCH (20:30)
[2018-03-22] MEDS: potassium Cl 20 mEq SR tablet PO SCH (20:31)
[2018-03-22] MEDS: apixaban 5mg tablet PO SCH (20:43)
[2018-03-22] MEDS: sacubitril/valsartan 24mg-26mg tablet PO SCH (20:44)
[2018-03-22] MEDS: spironolactone 25 MG tablet PO SCH (20:44)
[2018-03-22] MEDS ORDERED: carVEDilol 12.5mg tablet PO ONE (22:25)
[2018-03-23 03:47] LABS: BASOPHILS % (AUTO) 0.5 % (0-1); EOSINOPHILS # (AUTO) 0.1 X10'3 (0-0.9); EOSINOPHILS % (AUTO) 1.2 % (0-6); HEMOGLOBIN 12.4 g/dl (14.0-17.9); LYMPHOCYTES % (AUTO) 21.2 % (21-51); MEAN CORPUSCULAR HEMOGLOBIN 27.8 PG (27.0-31.0); MEAN CORPUSCULAR HGB CONC 32.7 % (33.0-36.5); MEAN CORPUSCULAR VOLUME 85.2 FL (78-98); MEAN PLATELET VOLUME 7.4 FL (7.4-10.4); MONOCYTES # (AUTO) 0.7 X10'3 (0-0.9); MONOCYTES % (AUTO) 14.8 % (2-12); NEUTROPHILS # (AUTO) 2.9 X10'3 (1.8-7.7); NEUTROPHILS % (AUTO) 62.3 % (42-75); PLATELET COUNT 163 X10'3 (140-440); RED BLOOD COUNT 4.46 X10'6 (4.70-6.10); RED CELL DISTRIBUTION WIDTH 15.3 % (11.5-14.5); WHITE BLOOD COUNT 4.7 X10'3 (4.5-11.0)
[2018-03-23 04:00] LABS: ALBUMIN 2.6 G/DL (3.4-5.0); ANION GAP 8 (8-16); BLOOD UREA NITROGEN 11 MG/DL (7-18); CALCIUM 8.2 MG/DL (8.5-10.1); CHLORIDE 104 MMOL/L (99-107); GLUCOSE 114 MG/DL (70-104); POTASSIUM 4.1 MMOL/L (3.5-5.1); SODIUM 140 MMOL/L (135-145); TOTAL CARBON DIOXIDE 28.3 MMOL/L (24-32); eGFR 74 ML/MIN
[2018-03-23 07:00] VITALS: BP 118/64
[2018-03-23] MEDS: spironolactone 25 MG tablet PO SCH ×2 (08:00→20:00)
[2018-03-23] MEDS: sacubitril/valsartan 24mg-26mg tablet PO SCH ×2 (08:00→20:00)
[2018-03-23] MEDS: cetirizine 10mg tablet PO SCH (08:00)
[2018-03-23] MEDS ORDERED: enoxaparin 40mg/0.4ml syringe SUBCUT SCH (08:00)
[2018-03-23] MEDS: (Tiotropium Br/Olodaterol HCl (Stiolto Respimat Inhal Spray) IH SCH (08:00)
[2018-03-23] MEDS: aripiprazole 5mg tablet PO SCH (08:36)
[2018-03-23] MEDS: apixaban 5mg tablet PO SCH ×2 (08:36→20:43)
[2018-03-23] MEDS: aspirin 81mg tab.chew PO SCH (08:37)
[2018-03-23] MEDS: atorvastatin 20mg tablet PO SCH (08:37)
[2018-03-23] MEDS: oseltamivir phos 75mg capsule PO SCH ×2 (08:38→20:43)
[2018-03-23] MEDS: bumetanide 1mg tablet PO SCH (08:39)
[2018-03-23] MEDS: carVEDilol 12.5mg tablet PO SCH ×2 (08:41→20:43)
[2018-03-23] MEDS: digoxin 125mcg (0.125mg) tablet PO SCH (08:43)
[2018-03-23] MEDS: potassium Cl 20 mEq SR tablet PO SCH ×2 (09:03→20:42)
[2018-03-23 09:15] LABS: MAGNESIUM 1.6 MG/DL (1.5-2.4)
[2018-03-23] MEDS: magnesium oxide 400mg tablet PO SCH (09:39)
[2018-03-23 11:00] VITALS: BP 98/56
[2018-03-23 15:00] VITALS: BP 114/74
[2018-03-23 18:00] VITALS: BP 105/70
[2018-03-23] MEDS: benzonatate 100mg capsule PO SCH (18:36)
[2018-03-23 20:30] VITALS: BP 104/67
[2018-03-23 22:00] VITALS: BP 149/83
[2018-03-24] MEDS: benzonatate 100mg capsule PO SCH ×2 (00:45→07:43)
[2018-03-24 02:00] VITALS: BP 107/52
[2018-03-24 05:23] LABS: ALBUMIN 2.8 G/DL (3.4-5.0); ANION GAP 7 (8-16); BLOOD UREA NITROGEN 12 MG/DL (7-18); BUN/CREATININE RATIO 12.5 (5.4-32.0); CALCIUM 8.5 MG/DL (8.5-10.1); CHLORIDE 101 MMOL/L (99-107); CREATININE 0.96 MG/DL (0.60-1.10); GLUCOSE 109 MG/DL (70-104); POTASSIUM 4.5 MMOL/L (3.5-5.1); SODIUM 136 MMOL/L (135-145); TOTAL CARBON DIOXIDE 28.1 MMOL/L (24-32); eGFR 87 ML/MIN
[2018-03-24 05:30] LABS: BASOPHILS % (AUTO) 0.4 % (0-1); EOSINOPHILS # (AUTO) 0.2 X10'3 (0-0.9); EOSINOPHILS % (AUTO) 3.4 % (0-6); HEMATOCRIT 37.8 % (42.0-52.0); HEMOGLOBIN 12.4 g/dl (14.0-17.9); LYMPHOCYTES # (AUTO) 1.2 X10'3 (1.1-4.8); MEAN CORPUSCULAR HEMOGLOBIN 27.8 PG (27.0-31.0); MEAN CORPUSCULAR HGB CONC 32.7 % (33.0-36.5); MEAN CORPUSCULAR VOLUME 85.1 FL (78-98); MEAN PLATELET VOLUME 7.8 FL (7.4-10.4); MONOCYTES # (AUTO) 0.5 X10'3 (0-0.9); MONOCYTES % (AUTO) 10.3 % (2-12); NEUTROPHILS # (AUTO) 2.8 X10'3 (1.8-7.7); NEUTROPHILS % (AUTO) 59.9 % (42-75); PLATELET COUNT 194 X10'3 (140-440); RED BLOOD COUNT 4.45 X10'6 (4.70-6.10); RED CELL DISTRIBUTION WIDTH 15.4 % (11.5-14.5); WHITE BLOOD COUNT 4.7 X10'3 (4.5-11.0)
[2018-03-24 06:00] VITALS: BP 109/66
[2018-03-24] MEDS: potassium Cl 20 mEq SR tablet PO SCH (07:43)
[2018-03-24] MEDS: digoxin 125mcg (0.125mg) tablet PO SCH (07:44)
[2018-03-24] MEDS: aripiprazole 5mg tablet PO SCH (07:44)
[2018-03-24] MEDS: aspirin 81mg tab.chew PO SCH (07:44)
[2018-03-24] MEDS: atorvastatin 20mg tablet PO SCH (07:45)
[2018-03-24] MEDS: cetirizine 10mg tablet PO SCH (07:45)
[2018-03-24] MEDS: magnesium oxide 400mg tablet PO SCH (07:45)
[2018-03-24] MEDS: carVEDilol 12.5mg tablet PO SCH (07:45)
[2018-03-24] MEDS: spironolactone 25 MG tablet PO SCH (07:45)
[2018-03-24] MEDS: bumetanide 1mg tablet PO SCH (07:51)
[2018-03-24] MEDS: oseltamivir phos 75mg capsule PO SCH (07:51)
[2018-03-24] MEDS: sacubitril/valsartan 24mg-26mg tablet PO SCH (07:51)
[2018-03-24] MEDS: apixaban 5mg tablet PO SCH (08:00)
[2018-03-24] MEDS: (Tiotropium Br/Olodaterol HCl (Stiolto Respimat Inhal Spray) IH SCH (08:00)
[2018-03-24 11:00] VITALS: BP 103/64
[2018-03-24] MEDS ORDERED: GUAI120L55 PO (12:05)
[2018-03-24] MEDS ORDERED: TAM75C PO (12:05)
== END 2018-03-24 14:20 | disposition home or self-care (01) | DRG 720 ==
LOC: ER 15:19 → ED HOLD 17:51 → PCU 3S 03-23 07:00
PROVIDERS: ADMIT Internal Medicine; ATTEND Family Medicine
PROC: 5A09357 Assistance with Respiratory Ventilation, Less than 24 Consecutive Hours, Continuous Positive Airway Pressure (ICD-10-PCS; principal; 2018-03-22)
DX: A41.89 Other specified sepsis (principal); J96.01 Acute respiratory failure with hypoxia; I21.A1 Myocardial infarction type 2; I11.0 Hypertensive heart disease with heart failure; E66.01 Morbid (severe) obesity due to excess calories; I48.0 Paroxysmal atrial fibrillation; I50.22 Chronic systolic (congestive) heart failure; J09.X2 Influenza due to identified novel influenza A virus with other respiratory manifestations; J44.9 Chronic obstructive pulmonary disease, unspecified; E78.00 Pure hypercholesterolemia, unspecified; E78.5 Hyperlipidemia, unspecified; F31.9 Bipolar disorder, unspecified; E11.9 Type 2 diabetes mellitus without complications; F41.9 Anxiety disorder, unspecified; G47.30 Sleep apnea, unspecified; Z68.43 Body mass index [BMI] 50.0-59.9, adult; I25.10 Atherosclerotic heart disease of native coronary artery without angina pectoris; K21.9 Gastro-esophageal reflux disease without esophagitis; I25.2 Old myocardial infarction; Z95.0 Presence of cardiac pacemaker; Z28.21 Immunization not carried out because of patient refusal; Z79.899 Other long term (current) drug therapy; Z79.01 Long term (current) use of anticoagulants; Z79.82 Long term (current) use of aspirin; Z82.49 Family history of ischemic heart disease and other diseases of the circulatory system; Z80.9 Family history of malignant neoplasm, unspecified
CPT/HCPCS: 36415; 71045; 80048; 80053; 80162; 81001; 82948; 83605; 83735; 83880; 84145; 84484; 85025; 85610; 85730; 87040; 87070; 87502; 87503; 93005; 94660; 94760; 96365; 99291; G0378; J0696; J2270; Q2037

== ENCOUNTER 2018-06-01 11:20 | Inpatient (IN) | payer MEDICAID | END 2018-06-03 11:45 | disposition home or self-care (01) | LOC: ER 11:20 → ED HOLD 16:58 → PCU 3S 19:05 | DX: I50.23 Acute on chronic systolic (congestive) heart failure (principal); E10.51 Type 1 diabetes mellitus with diabetic peripheral angiopathy without gangrene; G30.9 Alzheimer's disease, unspecified; F02.80 Dementia in other diseases classified elsewhere, unspecified severity, without behavioral disturbance, psychotic disturbance, mood disturbance, and anxiety; I48.91 Unspecified atrial fibrillation; I11.0 Hypertensive heart disease with heart failure; J44.9 Chronic obstructive pulmonary disease, unspecified; I25.10 Atherosclerotic heart disease of native coronary artery without angina pectoris ==

== ENCOUNTER 2018-09-06 13:16 | Inpatient (IN) | payer MEDICAID ==
[~2018-09-06] VITALS: Ht 190.5 cm; Wt 192.2 kg
--- NOTE | 2018-09-06 01:10 | NUR ---
Patient was given Tylenol for pain, helped with his headache but not much to the generalized pain the patient was feeling. Called Doctor Jada for possible stronger pain medication, will not be giving anything stronger than Tylenol at this time.
[~2018-09-06 13:16] MED LIST changes: +AMIO200T40 PO; -ATOR20TA PO; +ATOR20TA66 PO; -BUME2TAB3 PO; +BUME2TAB7 PO; +TRIA10.8 INH
[2018-09-06] MEDS ORDERED: normal saline 1000ML IV soln IV ONE (13:30)
[2018-09-06] MEDS ORDERED: methylPREDNISolone sod succ 125mg/2ml vial IV ONE (13:30)
[2018-09-06] MEDS ORDERED: ipratropium/albuterol 3ml nebule NEB ONE (13:30)
[2018-09-06 14:00] LABS: BASOPHILS # (AUTO) 0.1 X10'3 (0-0.2); BASOPHILS % (AUTO) 0.7 % (0-1); EOSINOPHILS # (AUTO) 0.3 X10'3 (0-0.9); EOSINOPHILS % (AUTO) 3.6 % (0-6); HEMATOCRIT 43.2 % (42.0-52.0); LYMPHOCYTES % (AUTO) 10.9 % (21-51); MEAN CORPUSCULAR HGB CONC 32.3 g/dL (33.0-36.5); MEAN CORPUSCULAR VOLUME 80.6 FL (78-98); MEAN PLATELET VOLUME 6.8 FL (7.4-10.4); MONOCYTES # (AUTO) 0.8 X10'3 (0-0.9); MONOCYTES % (AUTO) 8.5 % (2-12); NEUTROPHILS # (AUTO) 6.7 X10'3 (1.8-7.7); NEUTROPHILS % (AUTO) 76.3 % (42-75); PLATELET COUNT 246 X10'3 (140-440); RED BLOOD COUNT 5.37 X10'6 (4.70-6.10); RED CELL DISTRIBUTION WIDTH 16.3 % (11.5-14.5); WHITE BLOOD COUNT 8.8 X10'3 (4.5-11.0)
[2018-09-06 14:10] LABS: ALANINE AMINOTRANSFERASE 43 U/L (12-78); ALBUMIN 3.3 G/DL (3.4-5.0); ALBUMIN/GLOBULIN RATIO 0.8 (1.1-1.5); ALKALINE PHOSPHATASE 78 IU/L (46-116); ANION GAP 6 (8-16); ASPARTATE AMINO TRANSFERASE 21 U/L (10-37); BILIRUBIN,TOTAL 0.6 MG/DL (0.1-1.0); BLOOD UREA NITROGEN 12 MG/DL (7-18); BUN/CREATININE RATIO 11.5 (5.4-32.0); CALCIUM 9.1 MG/DL (8.5-10.1); CHLORIDE 100 MMOL/L (99-107); CREATININE 1.04 MG/DL (0.60-1.10); GLUCOSE 107 MG/DL (70-104); POTASSIUM 4.2 MMOL/L (3.5-5.1); SODIUM 135 MMOL/L (135-145); TOTAL CARBON DIOXIDE 29.2 MMOL/L (24-32); TOTAL PROTEIN 7.7 G/DL (6.4-8.2); eGFR 79 ML/MIN
[2018-09-06 14:11] LABS: PARTIAL THROMBOPLASTIN TIME 33 SECONDS (22-32)
[2018-09-06] MEDS ORDERED: furosemide 10 MG/1 ML 10ml inj IV ONE (14:30)
--- NOTE | 2018-09-06 14:35 | NUR ---
FLUIDS DISCONTINUED PER justino GRADY. IV LASIX ORDERED.
[2018-09-06] MEDS ORDERED: PRED20TA PO (14:46)
[2018-09-06] MEDS ORDERED: AMOX-419 PO (14:46)
[2018-09-06] MEDS ORDERED: ALBU6.7H INH (14:46)
--- NOTE | 2018-09-06 14:49 | NUR ---
pt ambulated approx 30-40 ft in brothers without oxygen, sats dropped to 89-90% on room air and pt c/o slight dizziness. provider was notified, pt was put back on oxygen in room. 2 lpm
[2018-09-06] MEDS ORDERED: magnesium 2GM in 50ml NS 50 ML IV ONE (14:55)
[2018-09-06] MEDS ORDERED: albuterol 2.5 MG/3 ML nebule CONTNEB PRN (14:55)
[2018-09-06] MEDS ORDERED: CefTRIAXone 2gm/D5W 50ml 50 ML IV ONE (15:10)
[2018-09-06] MEDS ORDERED: azithromycin/NS 500mg/250ml 250 ML IV ONE (15:10)
[2018-09-06] MEDS ORDERED: normal saline 1000ml 1,000 ML IV SCH (15:14)
[2018-09-06] MEDS ORDERED: acetaminophen 325mg tablet PO PRN (15:15)
[2018-09-06] MEDS ORDERED: potassium Cl 40MEQ/NS 500ml 500 ML IV PRN (15:15)
[2018-09-06] MEDS ORDERED: ipratropium/albuterol 3ml nebule NEB PRN (15:15)
[2018-09-06] MEDS ORDERED: magnesium hydroxide 30ml (MOM) UD suspension PO PRN (15:15)
[2018-09-06] MEDS ORDERED: CefTRIAXone/D5W-Rocephin 1gm 50 ML IV ONE (15:15)
[2018-09-06] MEDS ORDERED: ondansetron/PF 4mg/2ml inj IV PRN (15:15)
[2018-09-06] MEDS ORDERED: potassium Cl 20 mEq SR tablet PO PRN ×2 (15:15)
[2018-09-06] MEDS ORDERED: mag hydrox/Alum hydrox/simeth 30ml oral suspension PO PRN (15:15)
[2018-09-06] MEDS ORDERED: magnesium 2GM in 50ml NS 50 ML IV PRN (15:15)
[2018-09-06] MEDS ORDERED: potassium CL 10mEq/100ml bag 100 ML IV PRN (15:15)
[2018-09-06] MEDS ORDERED: magnesium Cl slow-release 64mg tablet PO PRN (15:15)
[2018-09-06] MEDS ORDERED: magnesium 4gm in 100ml NS 100 ML IV PRN (15:15)
[2018-09-06] MEDS ORDERED: ATOR40TA71 PO (16:12)
[2018-09-06] MEDS ORDERED: METF500T PO (16:12)
[2018-09-06] MEDS ORDERED: HYDR50TA65 PO (16:13)
--- NOTE | 2018-09-06 16:58 | NUR ---
Patient in ED. I have received report from LADY Beltran and had the opportunity to ask questions. Awaiting pt's arrival to PCU room 3020B.
--- NOTE | 2018-09-06 17:20 | NUR ---
Pt arrived from ED via gurney. Pt ambulated independently without difficulty to bed. Vital signs obtained. Dr. Lazcano at bedside. Will continue to closely monitor.
[2018-09-06 17:36] LABS: HEMOGLOBIN A1C 6.6 % (4.5-6.2)
[2018-09-06 17:37] VITALS: BP 149/87
[2018-09-06 18:00] VITALS: BP 135/85
--- NOTE | 2018-09-06 18:15 | NUR ---
Patient in room PCU 3023. I have received report from Ileana NARAYANAN and had the opportunity to ask questions and assume patient care.
--- NOTE | 2018-09-06 18:24 | NUR ---
Problems reprioritized. Patient report given, questions answered & plan of care reviewed with LADY Abdi.
[2018-09-06] MEDS ORDERED: nitroGLYCERIN 0.4mg SUBLingual tab SL PRN (19:40)
[2018-09-06] MEDS ORDERED: LORazepam 0.5 MG tablet PO PRN (19:40)
[2018-09-06] MEDS: sacubitril/valsartan 24mg-26mg tablet PO SCH (20:00)
[2018-09-06] MEDS: ipratropium/albuterol 3ml nebule NEB SCH ×2 (20:09→23:55)
[2018-09-06] MEDS: furosemide 40mg/4ml inj IV SCH (20:26)
[2018-09-06] MEDS: carVEDilol 12.5mg tablet PO SCH (20:26)
[2018-09-06] MEDS: apixaban 5mg tablet PO SCH (20:26)
[2018-09-06] MEDS: methylPREDNISolone sod succ 125mg/2ml vial IV SCH (20:26)
[2018-09-06] MEDS: spironolactone 25 MG tablet PO SCH (20:27)
[2018-09-06] MEDS ORDERED: temazepam 15mg capsule PO PRN (21:00)
[2018-09-06 22:00] VITALS: BP 133/82
[2018-09-07] VITALS (7 sets, daily range): BP systolic 116–176; BP diastolic 51–92
[2018-09-07 01:44] LABS: BASOPHILS % (AUTO) 0.3 % (0-1); EOSINOPHILS % (AUTO) 0 % (0-6); HEMATOCRIT 44.5 % (42.0-52.0); HEMOGLOBIN 14.3 g/dl (14.0-17.9); LYMPHOCYTES # (AUTO) 0.7 X10'3 (1.1-4.8); LYMPHOCYTES % (AUTO) 10.8 % (21-51); MEAN CORPUSCULAR HEMOGLOBIN 26.4 PG (27.0-31.0); MEAN CORPUSCULAR HGB CONC 32.2 g/dL (33.0-36.5); MEAN CORPUSCULAR VOLUME 81.8 FL (78-98); MEAN PLATELET VOLUME 7.2 FL (7.4-10.4); MONOCYTES # (AUTO) 0.1 X10'3 (0-0.9); MONOCYTES % (AUTO) 1.3 % (2-12); NEUTROPHILS # (AUTO) 5.5 X10'3 (1.8-7.7); NEUTROPHILS % (AUTO) 87.6 % (42-75); PLATELET COUNT 223 X10'3 (140-440); RED BLOOD COUNT 5.44 X10'6 (4.70-6.10); RED CELL DISTRIBUTION WIDTH 16.7 % (11.5-14.5); WHITE BLOOD COUNT 6.3 X10'3 (4.5-11.0)
[2018-09-07 01:57] LABS: ALANINE AMINOTRANSFERASE 49 U/L (12-78); ALBUMIN 3.1 G/DL (3.4-5.0); ALBUMIN/GLOBULIN RATIO 0.6 (1.1-1.5); ALKALINE PHOSPHATASE 77 IU/L (46-116); ANION GAP 5 (8-16); ASPARTATE AMINO TRANSFERASE 21 U/L (10-37); BILIRUBIN,TOTAL 0.3 MG/DL (0.1-1.0); BLOOD UREA NITROGEN 16 MG/DL (7-18); BUN/CREATININE RATIO 13.1 (5.4-32.0); CALCIUM 9.2 MG/DL (8.5-10.1); CHLORIDE 100 MMOL/L (99-107); CREATININE 1.22 MG/DL (0.60-1.10); GLUCOSE 214 MG/DL (70-104); POTASSIUM 4.4 MMOL/L (3.5-5.1); SODIUM 136 MMOL/L (135-145); TOTAL CARBON DIOXIDE 30.9 MMOL/L (24-32); TOTAL PROTEIN 7.9 G/DL (6.4-8.2); eGFR 66 ML/MIN
[2018-09-07 01:59] LABS: MAGNESIUM 1.9 MG/DL (1.5-2.4)
[2018-09-07] MEDS: methylPREDNISolone sod succ 125mg/2ml vial IV SCH ×4 (02:24→20:32)
--- NOTE | 2018-09-07 05:53 | NUR ---
Orientee documentation: I have reviewed and agree with all interventions, assessments performed and documented by Genny NARAYANAN. Orientee Medication Administration: For this medication-pass time frame, all medication were reviewed, dispensed, administered and documented per hospital policy by Genny NARAYANAN.
--- NOTE | 2018-09-07 06:19 | NUR ---
Problems reprioritized. Patient report given, questions answered & plan of care reviewed with Ileana NARAYANAN.
--- NOTE | 2018-09-07 06:21 | NUR ---
Patient in room PCU 3023. I have received report from LADY Abdi and had the opportunity to ask questions and assume patient care.
[2018-09-07] MEDS: ipratropium/albuterol 3ml nebule NEB SCH ×5 (07:00→23:00)
[2018-09-07] MEDS: apixaban 5mg tablet PO SCH ×2 (07:57→20:35)
[2018-09-07] MEDS: carVEDilol 12.5mg tablet PO SCH ×2 (07:57→20:36)
[2018-09-07] MEDS: atorvastatin 20mg tablet PO SCH (07:57)
[2018-09-07] MEDS: spironolactone 25 MG tablet PO SCH ×2 (07:57→20:36)
[2018-09-07] MEDS: potassium Cl 20 mEq SR tablet PO SCH (07:58)
[2018-09-07] MEDS: furosemide 40mg/4ml inj IV SCH ×2 (07:58→20:35)
[2018-09-07] MEDS: aspirin 81mg tab.chew PO SCH (07:58)
[2018-09-07] MEDS: magnesium oxide 400mg tablet PO SCH (07:58)
[2018-09-07] MEDS: aripiprazole 5mg tablet PO SCH (07:58)
[2018-09-07] MEDS: sacubitril/valsartan 24mg-26mg tablet PO SCH ×2 (08:00→20:00)
[2018-09-07] MEDS: K and/or MAG REPLACEMENT MC SCH (08:00)
[2018-09-07] MEDS ORDERED: enoxaparin 40mg/0.4ml syringe SQ SCH (08:00)
[2018-09-07] MEDS: Tiotropium Br/Olodaterol HCl (Stiolto Respimat Inhal Spray) 2 PUFFS IH SCH (08:00)
[2018-09-07] MEDS: azithromycin/NS 500mg/250ml 250 ML IV SCH (08:19)
[2018-09-07] MEDS: CefTRIAXone/D5W-Rocephin 1gm 50 ML IV SCH (09:40)
--- NOTE | 2018-09-07 09:51 | NUR ---
Message sent to pharmacy re missing Entresto.
--- NOTE | 2018-09-07 18:01 | NUR ---
Orientee documentation: I have reviewed and agree with all interventions, assessments performed and documented by LADY Hall.
--- NOTE | 2018-09-07 18:09 | NUR ---
Problems reprioritized. Patient report given to Trinidad NARAYANAN, and Iris NARAYANAN, questions answered & plan of care reviewed with .
--- NOTE | 2018-09-07 19:14 | NUR ---
Patient in room PCU 3023. I have received report from Ileana NARAYANAN and Jaylyn NARAYANAN and had the opportunity to ask questions and assume patient care. Patient resting, will continue to monitor.
[2018-09-08] MEDS: methylPREDNISolone sod succ 125mg/2ml vial IV SCH ×4 (02:22→20:04)
[2018-09-08 03:00] VITALS: BP 112/58
[2018-09-08 06:24] LABS: BASOPHILS % (AUTO) 0 % (0-1); EOSINOPHILS % (AUTO) 0 % (0-6); HEMATOCRIT 43.2 % (42.0-52.0); HEMOGLOBIN 13.6 g/dl (14.0-17.9); LYMPHOCYTES # (AUTO) 0.8 X10'3 (1.1-4.8); LYMPHOCYTES % (AUTO) 5.9 % (21-51); MEAN CORPUSCULAR HGB CONC 31.4 g/dL (33.0-36.5); MEAN CORPUSCULAR VOLUME 82.8 FL (78-98); MEAN PLATELET VOLUME 7.4 FL (7.4-10.4); MONOCYTES # (AUTO) 0.4 X10'3 (0-0.9); MONOCYTES % (AUTO) 2.8 % (2-12); NEUTROPHILS # (AUTO) 12.2 X10'3 (1.8-7.7); NEUTROPHILS % (AUTO) 91.3 % (42-75); PLATELET COUNT 248 X10'3 (140-440); RED BLOOD COUNT 5.21 X10'6 (4.70-6.10); RED CELL DISTRIBUTION WIDTH 16.5 % (11.5-14.5); WHITE BLOOD COUNT 13.3 X10'3 (4.5-11.0)
--- NOTE | 2018-09-08 06:25 | NUR ---
Problems reprioritized. Patient report given, questions answered & plan of care reviewed with Maryam NARAYANAN and Jaylyn NARAYANAN.
--- NOTE | 2018-09-08 06:35 | NUR ---
Patient in room PCU 3023. I have received report from Trinidad NARAYANAN and Iris NARAYANAN and had the opportunity to ask questions and assume patient care.
[2018-09-08 06:43] LABS: ALANINE AMINOTRANSFERASE 43 U/L (12-78); ALBUMIN 2.9 G/DL (3.4-5.0); ALBUMIN/GLOBULIN RATIO 0.7 (1.1-1.5); ALKALINE PHOSPHATASE 63 IU/L (46-116); ANION GAP 2 (8-16); ASPARTATE AMINO TRANSFERASE 14 U/L (10-37); BILIRUBIN,TOTAL 0.2 MG/DL (0.1-1.0); BLOOD UREA NITROGEN 24 MG/DL (7-18); BUN/CREATININE RATIO 23.3 (5.4-32.0); CALCIUM 9.5 MG/DL (8.5-10.1); CHLORIDE 100 MMOL/L (99-107); CREATININE 1.03 MG/DL (0.60-1.10); GLUCOSE 244 MG/DL (70-104); MAGNESIUM 2.2 MG/DL (1.5-2.4); POTASSIUM 5.1 MMOL/L (3.5-5.1); SODIUM 136 MMOL/L (135-145); TOTAL CARBON DIOXIDE 34.2 MMOL/L (24-32); TOTAL PROTEIN 7.3 G/DL (6.4-8.2); eGFR 80 ML/MIN
[2018-09-08 07:00] VITALS: BP 132/59
[2018-09-08] MEDS: ipratropium/albuterol 3ml nebule NEB SCH ×5 (07:46→23:03)
[2018-09-08] MEDS: magnesium oxide 400mg tablet PO SCH (08:00)
[2018-09-08] MEDS: potassium Cl 20 mEq SR tablet PO SCH (08:00)
[2018-09-08] MEDS: Tiotropium Br/Olodaterol HCl (Stiolto Respimat Inhal Spray) 2 PUFFS IH SCH (08:00)
[2018-09-08] MEDS: K and/or MAG REPLACEMENT MC SCH (08:00)
[2018-09-08] MEDS: furosemide 40mg/4ml inj IV SCH ×2 (08:46→20:05)
[2018-09-08] MEDS: carVEDilol 12.5mg tablet PO SCH ×2 (08:47→20:06)
[2018-09-08] MEDS: aripiprazole 5mg tablet PO SCH (08:47)
[2018-09-08] MEDS: aspirin 81mg tab.chew PO SCH (08:47)
[2018-09-08] MEDS: spironolactone 25 MG tablet PO SCH ×2 (08:47→20:05)
[2018-09-08] MEDS: apixaban 5mg tablet PO SCH ×2 (08:47→20:06)
[2018-09-08] MEDS: sacubitril/valsartan 24mg-26mg tablet PO SCH ×2 (08:47→20:06)
[2018-09-08] MEDS: atorvastatin 20mg tablet PO SCH (08:47)
[2018-09-08] MEDS: azithromycin/NS 500mg/250ml 250 ML IV SCH (08:48)
[2018-09-08] MEDS: CefTRIAXone/D5W-Rocephin 1gm 50 ML IV SCH (10:41)
[2018-09-08 11:00] VITALS: BP 102/49
[2018-09-08 15:00] VITALS: BP 139/56
--- NOTE | 2018-09-08 18:15 | NUR ---
Orientee documentation: I have reviewed and agree with interventions, assessments performed and documented by Isabel NARAYANAN. Orientee Medication Administration: For this medication-pass time frame, medication were reviewed, dispensed, administered and documented per hospital policy by Isabel NARAYANAN.
--- NOTE | 2018-09-08 18:16 | NUR ---
Problems reprioritized. Patient report given, questions answered & plan of care reviewed with Trinidad NARAYANAN and Iris NARAYANAN.
--- NOTE | 2018-09-08 18:38 | NUR ---
Patient in room PCU 3023. I have received report from Maryam NARAYANAN and had the opportunity to ask questions and assume patient care. Patient resting in bed with his girlfriend at bedside. No current needs at this time.
[2018-09-08 19:00] VITALS: BP 129/88
[2018-09-08 23:00] VITALS: BP 128/62
[2018-09-09] MEDS: methylPREDNISolone sod succ 125mg/2ml vial IV SCH ×4 (01:46→19:31)
[2018-09-09 03:00] VITALS: BP 128/63
[2018-09-09 06:07] LABS: BASOPHILS % (AUTO) 0.2 % (0-1); EOSINOPHILS % (AUTO) 0 % (0-6); HEMATOCRIT 43.8 % (42.0-52.0); HEMOGLOBIN 14.1 g/dl (14.0-17.9); LYMPHOCYTES # (AUTO) 0.6 X10'3 (1.1-4.8); LYMPHOCYTES % (AUTO) 4.8 % (21-51); MEAN CORPUSCULAR HEMOGLOBIN 26.5 PG (27.0-31.0); MEAN CORPUSCULAR HGB CONC 32.1 g/dL (33.0-36.5); MEAN CORPUSCULAR VOLUME 82.4 FL (78-98); MEAN PLATELET VOLUME 7.3 FL (7.4-10.4); MONOCYTES # (AUTO) 0.3 X10'3 (0-0.9); MONOCYTES % (AUTO) 2.4 % (2-12); NEUTROPHILS # (AUTO) 11.5 X10'3 (1.8-7.7); NEUTROPHILS % (AUTO) 92.6 % (42-75); PLATELET COUNT 283 X10'3 (140-440); RED BLOOD COUNT 5.31 X10'6 (4.70-6.10); RED CELL DISTRIBUTION WIDTH 16.2 % (11.5-14.5); WHITE BLOOD COUNT 12.4 X10'3 (4.5-11.0)
--- NOTE | 2018-09-09 06:15 | NUR ---
Patient in room PCU 3023. I have received report from Trinidad NARAYANAN and had the opportunity to ask questions and assume patient care.
--- NOTE | 2018-09-09 06:22 | NUR ---
Problems reprioritized. Patient report given, questions answered & plan of care reviewed with Waldo NARAYANAN.
[2018-09-09 06:31] VITALS: BP 153/77
[2018-09-09 06:35] LABS: ALANINE AMINOTRANSFERASE 36 U/L (12-78); ALBUMIN/GLOBULIN RATIO 0.7 (1.1-1.5); ALKALINE PHOSPHATASE 67 IU/L (46-116); ANION GAP 4 (8-16); ASPARTATE AMINO TRANSFERASE 13 U/L (10-37); BILIRUBIN,TOTAL 0.2 MG/DL (0.1-1.0); BLOOD UREA NITROGEN 24 MG/DL (7-18); BUN/CREATININE RATIO 27.6 (5.4-32.0); CALCIUM 9.2 MG/DL (8.5-10.1); CHLORIDE 99 MMOL/L (99-107); CREATININE 0.87 MG/DL (0.60-1.10); GLUCOSE 244 MG/DL (70-104); MAGNESIUM 2.4 MG/DL (1.5-2.4); POTASSIUM 4.8 MMOL/L (3.5-5.1); SODIUM 136 MMOL/L (135-145); TOTAL CARBON DIOXIDE 33.1 MMOL/L (24-32); TOTAL PROTEIN 7.3 G/DL (6.4-8.2); eGFR > 90 ML/MIN
[2018-09-09] MEDS: ipratropium/albuterol 3ml nebule NEB SCH ×5 (07:07→23:00)
[2018-09-09] MEDS: aripiprazole 5mg tablet PO SCH (07:51)
[2018-09-09] MEDS: spironolactone 25 MG tablet PO SCH ×2 (07:51→19:30)
[2018-09-09] MEDS: potassium Cl 20 mEq SR tablet PO SCH (07:51)
[2018-09-09] MEDS: apixaban 5mg tablet PO SCH ×2 (07:52→19:30)
[2018-09-09] MEDS: aspirin 81mg tab.chew PO SCH (07:52)
[2018-09-09] MEDS: magnesium oxide 400mg tablet PO SCH (07:53)
[2018-09-09] MEDS: carVEDilol 12.5mg tablet PO SCH ×2 (07:53→19:30)
[2018-09-09] MEDS: azithromycin/NS 500mg/250ml 250 ML IV SCH (07:55)
[2018-09-09] MEDS: CefTRIAXone/D5W-Rocephin 1gm 50 ML IV SCH (07:55)
[2018-09-09] MEDS: furosemide 40mg/4ml inj IV SCH ×2 (07:55→19:30)
[2018-09-09] MEDS: K and/or MAG REPLACEMENT MC SCH (08:00)
[2018-09-09] MEDS: Tiotropium Br/Olodaterol HCl (Stiolto Respimat Inhal Spray) 2 PUFFS IH SCH (08:00)
[2018-09-09] MEDS: atorvastatin 20mg tablet PO SCH (08:52)
[2018-09-09] MEDS: sacubitril/valsartan 24mg-26mg tablet PO SCH ×2 (08:52→19:30)
[2018-09-09 11:00] VITALS: BP 117/50
--- NOTE | 2018-09-09 11:35 | NUR ---
TITRATED 02 FROM 3L TO 2L 92% ON 3L TITRATING IN PREPARATION FOR DISCHARGE WILL REASSESS
--- NOTE | 2018-09-09 14:48 | NUR ---
Patient in room PCU 3023. I have received report from Waldo NARAYANAN and had the opportunity to ask questions and assume patient care.
[2018-09-09 15:00] VITALS: BP 122/70
[2018-09-09 18:00] VITALS: BP 155/87
--- NOTE | 2018-09-09 18:28 | NUR ---
Problems reprioritized. Patient report given, questions answered & plan of care reviewed with Alan NARAYANAN.
--- NOTE | 2018-09-09 18:49 | NUR ---
Patient in room PCU 3023. I have received report from LADY Peterson and had the opportunity to ask questions and assume patient care.
--- NOTE | 2018-09-09 20:39 | NUR ---
PAGER ID: [phone] MESSAGE: [id number] Jesse Anderson: Had a 21 run of [email or web address]. LADY Phillips Ext [phone]
[2018-09-09 22:00] VITALS: BP 137/73
[2018-09-10] MEDS: methylPREDNISolone sod succ 125mg/2ml vial IV SCH ×2 (01:20→10:18)
[2018-09-10 04:00] VITALS: BP 137/74
[2018-09-10 06:18] LABS: BASOPHILS % (AUTO) 0 % (0-1); EOSINOPHILS % (AUTO) 0 % (0-6); HEMATOCRIT 47.4 % (42.0-52.0); HEMOGLOBIN 15.2 g/dl (14.0-17.9); LYMPHOCYTES % (AUTO) 8.5 % (21-51); MEAN CORPUSCULAR VOLUME 81.2 FL (78-98); MEAN PLATELET VOLUME 7.1 FL (7.4-10.4); MONOCYTES # (AUTO) 0.5 X10'3 (0-0.9); MONOCYTES % (AUTO) 4.1 % (2-12); NEUTROPHILS # (AUTO) 10.5 X10'3 (1.8-7.7); NEUTROPHILS % (AUTO) 87.4 % (42-75); PLATELET COUNT 299 X10'3 (140-440); RED BLOOD COUNT 5.84 X10'6 (4.70-6.10); RED CELL DISTRIBUTION WIDTH 16.3 % (11.5-14.5)
--- NOTE | 2018-09-10 06:25 | NUR ---
Patient in room PCU 3023. I have received report from Alan NARAYANAN and had the opportunity to ask questions and assume patient care.
--- NOTE | 2018-09-10 06:26 | NUR ---
Problems reprioritized. Patient report given, questions answered & plan of care reviewed with LADY Haas.
[2018-09-10 06:33] LABS: ALANINE AMINOTRANSFERASE 53 U/L (12-78); ALBUMIN 3.2 G/DL (3.4-5.0); ALBUMIN/GLOBULIN RATIO 0.7 (1.1-1.5); ALKALINE PHOSPHATASE 67 IU/L (46-116); ANION GAP 4 (8-16); ASPARTATE AMINO TRANSFERASE 16 U/L (10-37); BILIRUBIN,TOTAL 0.3 MG/DL (0.1-1.0); BLOOD UREA NITROGEN 28 MG/DL (7-18); BUN/CREATININE RATIO 30.1 (5.4-32.0); CALCIUM 9.5 MG/DL (8.5-10.1); CHLORIDE 100 MMOL/L (99-107); CREATININE 0.93 MG/DL (0.60-1.10); GLUCOSE 201 MG/DL (70-104); MAGNESIUM 2.4 MG/DL (1.5-2.4); POTASSIUM 4.7 MMOL/L (3.5-5.1); SODIUM 136 MMOL/L (135-145); TOTAL CARBON DIOXIDE 32.5 MMOL/L (24-32); TOTAL PROTEIN 7.7 G/DL (6.4-8.2); eGFR 90 ML/MIN
[2018-09-10 07:00] VITALS: BP 153/71
[2018-09-10] MEDS: ipratropium/albuterol 3ml nebule NEB SCH ×2 (07:22→11:00)
[2018-09-10] MEDS ORDERED: azithromycin 250mg tablet PO SCH (08:00)
[2018-09-10] MEDS: K and/or MAG REPLACEMENT MC SCH (08:00)
[2018-09-10] MEDS: atorvastatin 20mg tablet PO SCH (10:14)
[2018-09-10] MEDS: aripiprazole 5mg tablet PO SCH (10:14)
[2018-09-10] MEDS: spironolactone 25 MG tablet PO SCH (10:15)
[2018-09-10] MEDS: magnesium oxide 400mg tablet PO SCH (10:16)
[2018-09-10] MEDS: potassium Cl 20 mEq SR tablet PO SCH (10:16)
[2018-09-10] MEDS: apixaban 5mg tablet PO SCH (10:16)
[2018-09-10] MEDS: aspirin 81mg tab.chew PO SCH (10:17)
[2018-09-10] MEDS: carVEDilol 12.5mg tablet PO SCH (10:17)
[2018-09-10] MEDS: CefTRIAXone/D5W-Rocephin 1gm 50 ML IV SCH (10:18)
[2018-09-10] MEDS: furosemide 40mg/4ml inj IV SCH (10:18)
[2018-09-10] MEDS ORDERED: PRED20TA PO (10:34)
[2018-09-10] MEDS ORDERED: FURO20TA4 PO (10:34)
[2018-09-10] MEDS ORDERED: CEFD300C3 PO (10:34)
[2018-09-10 11:00] VITALS: BP 152/86
[2018-09-10] MEDS: sacubitril/valsartan 24mg-26mg tablet PO SCH (13:17)
--- NOTE | 2018-09-10 14:15 | NUR ---
Patient discharged. Patient discharged home via patient's private vehicle. Patient escorted downstairs to vehicle via RN in wheelchair. IV catheter removed prior to discharge, both IV catheters intact (pt had two IVs). Tele leads removed from patient and tele box returned to senior telecommunications specialist prior to discharge. Discharge instructions discussed with patient via RN. New prescriptions discussed with patient via RN. Patient's new prescriptions called into patient's preferred pharmacy of [facility] in [place], [place] by RN. All patient belongings sent with patient upon discharge. All questions and concerns addressed with patient prior to discharge.
== END 2018-09-10 14:10 | disposition home or self-care (01) | DRG 194 ==
LOC: ER 13:16 → PCU 3S 16:18 → CMPBEDREQ 19:22
PROVIDERS: ADMIT Family Medicine; ATTEND Family Medicine
DX: I11.0 Hypertensive heart disease with heart failure (principal); I21.A1 Myocardial infarction type 2; J96.01 Acute respiratory failure with hypoxia; J18.9 Pneumonia, unspecified organism; E44.0 Moderate protein-calorie malnutrition; J44.0 Chronic obstructive pulmonary disease with (acute) lower respiratory infection; E10.51 Type 1 diabetes mellitus with diabetic peripheral angiopathy without gangrene; E66.01 Morbid (severe) obesity due to excess calories; J45.41 Moderate persistent asthma with (acute) exacerbation; N17.9 Acute kidney failure, unspecified; I50.23 Acute on chronic systolic (congestive) heart failure; I42.7 Cardiomyopathy due to drug and external agent; G30.9 Alzheimer's disease, unspecified; E78.00 Pure hypercholesterolemia, unspecified; E78.5 Hyperlipidemia, unspecified; F15.10 Other stimulant abuse, uncomplicated; F41.1 Generalized anxiety disorder; G47.33 Obstructive sleep apnea (adult) (pediatric); I25.10 Atherosclerotic heart disease of native coronary artery without angina pectoris; I48.91 Unspecified atrial fibrillation; J20.9 Acute bronchitis, unspecified; F32.9 Major depressive disorder, single episode, unspecified; K21.9 Gastro-esophageal reflux disease without esophagitis; K76.0 Fatty (change of) liver, not elsewhere classified; Z68.43 Body mass index [BMI] 50.0-59.9, adult; Z79.4 Long term (current) use of insulin; Z86.73 Personal history of transient ischemic attack (TIA), and cerebral infarction without residual deficits; I25.2 Old myocardial infarction; Z87.891 Personal history of nicotine dependence; Z95.1 Presence of aortocoronary bypass graft; Z95.810 Presence of automatic (implantable) cardiac defibrillator
CPT/HCPCS: 36415; 71046; 80053; 83036; 83605; 83735; 83880; 84145; 84484; 85025; 85610; 85730; 87040; 87070; 93005; 94640; 94760; 96365; 96368; 96375; 99285; G0378; J0456; J0696; J1940; J2930; J3475; J7030

== ENCOUNTER 2019-08-09 22:57 | Inpatient (IN) | payer MEDICAID ==
[~2019-08-09] VITALS: Ht 190.5 cm; Wt 189.9 kg
[~2019-08-09 22:57] MED LIST changes: -AMIO200T40 PO; +ARIP5TAB14 PO; -ARIP5TAB4 PO; -ATOR20TA66 PO; +ATOR40TA71 PO; -BUME2TAB7 PO; -CETI-102 PO; -DIGO125T PO; +HYDR-4069 PO; +METF500T PO; -METF500T7 PO; -POTA20TA19 PO; -SACU1TAB PO; +SACU1TAB4 PO; -TIOT4MIS3 INH; -TRIA10.8 INH
[2019-08-09] MEDS: amiodarone/D5 360MG/200ML BAG 200 ML IV SCH ×2 (23:00→23:43)
[2019-08-09] MEDS ORDERED: etomidate 2mg/ml inj. IV STA (23:02)
[2019-08-09] MEDS ORDERED: magnesium 2GM in 50ml NS 50 ML IV ONE (23:05)
[2019-08-09] MEDS ORDERED: amiodarone 150mg/dext, iso-os 100 ML IV STA (23:07)
--- NOTE | 2019-08-09 23:09 | NUR ---
2300 2 gm magnesium iv 2302 etomidate 10 m,g iv 2303 shocked 100J hr 139 2306 amiodarone 150mg loading dose 2307 shocked 150J preparing to intubate
[2019-08-09] MEDS ORDERED: DOBUTamine-DoBUTrex 500mg/D5W 250 ML IV SCH (23:10)
[2019-08-09] MEDS ORDERED: amiodarone 50MG/ML inj IV ONE (23:15)
--- NOTE | 2019-08-09 23:15 | NUR ---
SHOCKED AT 200j
[2019-08-09] MEDS ORDERED: amiodarone 50MG/ML inj IV STA (23:19)
[2019-08-09] MEDS ORDERED: DOPamine 400mg/D5W 250ml 250 ML IV SCH (23:25)
--- NOTE | 2019-08-09 23:29 | NUR ---
2312: DOBUTAMINE IV 10/KG/MIN 2315: DOBAMINE IV 5 STARTED
--- NOTE | 2019-08-09 23:32 | NUR ---
STATED TO STOP DOPAMINE
[2019-08-09 23:33] LABS: EOSINOPHILS # (AUTO) 0.1 X10'3 (0-0.9); HEMOGLOBIN 14.2 g/dl (14.0-17.9); LYMPHOCYTES # (AUTO) 2.3 X10'3 (1.1-4.8); MEAN PLATELET VOLUME 7.2 FL (7.4-10.4); MONOCYTES # (AUTO) 0.3 X10'3 (0-0.9); WHITE BLOOD COUNT 8.1 X10'3 (4.5-11.0)
[2019-08-09 23:34] LABS: BASOPHILS # (AUTO) 0.1 X10'3 (0-0.2); BASOPHILS % (AUTO) 0.6 % (0-1); EOSINOPHILS % (AUTO) 1.6 % (0-6); HEMATOCRIT 43.8 % (42.0-52.0); MEAN CORPUSCULAR HEMOGLOBIN 27.6 PG (27.0-31.0); MEAN CORPUSCULAR HGB CONC 32.5 g/dL (33.0-36.5); MEAN CORPUSCULAR VOLUME 85.2 FL (78-98); MONOCYTES % (AUTO) 3.8 % (2-12); NEUTROPHILS # (AUTO) 5.3 X10'3 (1.8-7.7); PLATELET COUNT 298 X10'3 (140-440); RED BLOOD COUNT 5.14 X10'6 (4.70-6.10); RED CELL DISTRIBUTION WIDTH 15.7 % (11.5-14.5)
--- NOTE | 2019-08-09 23:34 | NUR ---
HIS EJ CAME OUT
--- NOTE | 2019-08-09 23:34 | NUR ---
HE IS GETTING CXR
--- NOTE | 2019-08-09 23:36 | NUR ---
AT THE TO PLACE A CENTRAL LINE
[2019-08-09 23:45] LABS: ALANINE AMINOTRANSFERASE 60 U/L (12-78); ALBUMIN 3.3 G/DL (3.4-5.0); ALBUMIN/GLOBULIN RATIO 0.8 (1.1-1.5); ALKALINE PHOSPHATASE 91 IU/L (46-116); ANION GAP 10 (8-16); ASPARTATE AMINO TRANSFERASE 34 U/L (10-37); BILIRUBIN,TOTAL 0.4 MG/DL (0.1-1.0); BLOOD UREA NITROGEN 21 MG/DL (7-18); BUN/CREATININE RATIO 14.5 (5.4-32.0); CALCIUM 9.2 MG/DL (8.5-10.1); CHLORIDE 103 MMOL/L (99-107); CREATININE 1.45 MG/DL (0.60-1.10); GLUCOSE 262 MG/DL (70-104); POTASSIUM 4.2 MMOL/L (3.5-5.1); SODIUM 139 MMOL/L (135-145); TOTAL PROTEIN 7.2 G/DL (6.4-8.2); eGFR 54 ML/MIN
--- NOTE | 2019-08-09 23:48 | NUR ---
DOBUTAMINE DECREASED R/T BP 180/66
--- NOTE | 2019-08-09 23:52 | NUR ---
PLEASE NOTE THAT THESE STRAIGHT NURSING NOTES REPRESENT ACURATE TIMES FOR MED ADMINISTRATION WHEREAS THE MAR IS NOT ACCURATE FOR PERFECT TIMES.
[2019-08-10] VITALS (16 sets, daily range): BP systolic 91–143; BP diastolic 46–73
[2019-08-10] MEDS: amiodarone/D5 360MG/200ML BAG 200 ML IV SCH ×4 (00:07→16:02)
--- NOTE | 2019-08-10 00:08 | NUR ---
DOBUTAMINE STOPPED AMIODARONE STARTED CL UNSUCCESSFUL. ARTERIAL. PRESSURE BEING HELD.
--- NOTE | 2019-08-10 00:22 | NUR ---
PRESSURE HELD TO RIGHT GROIN X 15 MIN AND PRESSURE BANDAGE ON. CMS INTACT TO RIGHT FOOT.
--- NOTE | 2019-08-10 00:24 | NUR ---
BP 87/40 MD AT BS AND ORDERED DOBUTAMINE TO RESTART AT 5
[2019-08-10] MEDS ORDERED: AMIO200T39 PO (00:28)
--- NOTE | 2019-08-10 00:28 | NUR ---
AWAKE, TALKING TO ME. REVIEWED HIS MED LIST WITH HIM.
--- NOTE | 2019-08-10 00:30 | NUR ---
DIMMED LIGHTS SO HE CAN REST. HE DENIED WANTING A BLANKET.
[2019-08-10] MEDS ORDERED: magnesium sulf 1 GM/2 ML ONE (02:00)
[2019-08-10] MEDS ORDERED: DOPamine/D5W 400mg/250ml bag IV ONE (02:00)
[2019-08-10] MEDS ORDERED: DOBUTamine/D5W 500mg/250ml premix IV ONE (02:00)
[2019-08-10] MEDS ORDERED: epiNEPHrine 0.1mg/ml 10ml syringe ONE (02:00)
[2019-08-10] MEDS ORDERED: amiodarone 50MG/ML inj IV ONE (02:00)
[2019-08-10] MEDS ORDERED: rocuronium 10mg/ml inj IV ONE (02:00)
--- NOTE | 2019-08-10 02:03 | NUR ---
HE SAID HIS GROIN HURT. THE SITE IS SOFT AND NO SIGNS OF HEMATOMA. HE VOIDED AND SO A URINE WAS SENT TO THE LAB.
[2019-08-10 02:20] LABS: URINE AMPHETAMINE SCREEN NEGATIVE (Neg); URINE BARBITUATE SCREEN NEGATIVE (Neg); URINE BENZODIAZEPINES SCREEN NEGATIVE (Neg); URINE CANNABINOID SCREEN NEGATIVE (Neg); URINE COCAINE SCREEN NEGATIVE (Neg); URINE METHADONE SCREEN NEGATIVE (Neg); URINE OPIATE SCREEN NEGATIVE (Neg); URINE PHENCYCLIDINE SCREEN NEGATIVE (Neg)
--- NOTE | 2019-08-10 02:29 | NUR ---
ERNESTO: [phone]
[2019-08-10] MEDS ORDERED: magnesium 4gm in 100ml NS 100 ML IV PRN (03:05)
[2019-08-10] MEDS ORDERED: heparin 10,000 units/1 ML INJ IV PRN (03:05)
[2019-08-10] MEDS ORDERED: acetaminophen 325mg tablet PO PRN ×2 (03:05)
[2019-08-10] MEDS ORDERED: DOBUTamine-DoBUTrex 500mg/D5W 250 ML IV PRN (03:05)
[2019-08-10] MEDS ORDERED: heparin 10,000 units/1 ML INJ IV ONE (03:05)
[2019-08-10] MEDS ORDERED: acetaminophen 650mg rectal suppository RC PRN (03:05)
[2019-08-10] MEDS ORDERED: potassium CL 10mEq/100ml bag 100 ML IV PRN (03:05)
[2019-08-10] MEDS ORDERED: potassium Cl 20 mEq SR tablet PO PRN (03:05)
[2019-08-10] MEDS ORDERED: ondansetron/PF 4mg/2ml inj IV PRN (03:05)
[2019-08-10] MEDS ORDERED: ipratropium/albuterol 3ml nebule NEB PRN (03:05)
[2019-08-10] MEDS ORDERED: magnesium hydroxide 30ml (MOM) UD suspension PO PRN (03:05)
[2019-08-10] MEDS ORDERED: proCHLORperazine 10 MG/2 ml inj IV PRN (03:05)
[2019-08-10] MEDS ORDERED: magnesium 2GM in 50ml NS 50 ML IV PRN (03:05)
--- NOTE | 2019-08-10 03:40 | NUR ---
DR. ARITA CONTACTED TO CLARIFY THE HEPARIN AND SHE SAID THAT HE POSSIBLY HAS A PE, PT IS ON ELIQUIS BUT DUE TO HIS WEIGHT HE HAS A HIGH PROBABILITY AND THAT, YES, SHE DOES WANT HEPARIN PER DVT/PE PROTOCOL BUT TO WAIT FOR THE LABS TO COME BACK BEFORE STARTING AND IF THERE IS ANY ELEVATIONS, TO GIVE HER A CALL.
[2019-08-10 03:52] LABS: CLARITY,URINE SLIGHTLY CLOUDY (Clear); COLOR,URINE YELLOW (Yellow); GLUCOSE, URINE NEGATIVE (Neg); KETONES,URINE NEGATIVE (Neg); LEUKOCYTE ESTERASE ,URINE NEGATIVE (Neg); NITRITES, URINE NEGATIVE (Neg); OCCULT BLOOD,URINE TRACE-INTACT (Neg); PROTEIN,URINE 100 mg/dl (Neg); UROBILINOGEN,URINE 0.2 E.U/dL (0.2-1.0)
[2019-08-10 03:59] LABS: UA COLLECTION TYPE VOIDED
[2019-08-10 04:01] LABS: BACTERIA,URINE NONE SEEN /HPF (Neg); RBC,URINE NONE SEEN /HPF (0-2); SQUAMOUS EPITHELIAL CELL,UR FEW /LPF (FEW); WBC,URINE NONE SEEN /HPF (0-4)
[2019-08-10 04:02] LABS: CELLULAR CAST 0-4 /LPF (NEGATIVE)
[2019-08-10 04:05] LABS: D-DIMER 0.23 MG/L FEU (0-0.50); PARTIAL THROMBOPLASTIN TIME 31 SECONDS (22-32)
[2019-08-10 04:11] LABS: PLATELET COUNT 298 X10'3 (140-440)
--- NOTE | 2019-08-10 04:13 | NUR ---
THE Kartela TRANSMITTER IS NOT WORKING SO THE REP WAS PAGED TO COME IN AN INTERIGATE THE PACEMAKER. WIGS SALESPERSON INFORMED.
[2019-08-10 04:20] LABS: MAGNESIUM 2.8 MG/DL (1.5-2.4); PHOSPHORUS 4.3 MG/DL (2.3-4.5)
--- NOTE | 2019-08-10 04:25 | NUR ---
HIS HR JUMPED TO OVER 200 AND LADY SCHMIDT STATES THAT HE JUMPED. APPARENTLY HIS DEFIB WENT OFF. THE PATIENT IS BACK DOWN TO THE 120S AGAIN. QUICK EPISODE AND PATIENT FEELS NO CHANGES.
--- NOTE | 2019-08-10 04:28 | NUR ---
THE APPRENTICE PAINTER HAND FOR ICU, MARLENI WAS IMMEDIATED INFORMED AND PT UP THERE NOW.
[2019-08-10 04:33] LABS: BASOPHILS # (AUTO) 0.1 X10'3 (0-0.2); BASOPHILS % (AUTO) 0.6 % (0-1); EOSINOPHILS # (AUTO) 0.1 X10'3 (0-0.9); EOSINOPHILS % (AUTO) 0.5 % (0-6); HEMATOCRIT 42.8 % (42.0-52.0); HEMOGLOBIN 13.9 g/dl (14.0-17.9); LYMPHOCYTES # (AUTO) 2.4 X10'3 (1.1-4.8); LYMPHOCYTES % (AUTO) 16.3 % (21-51); MEAN CORPUSCULAR HEMOGLOBIN 27.7 PG (27.0-31.0); MEAN CORPUSCULAR HGB CONC 32.5 g/dL (33.0-36.5); MEAN CORPUSCULAR VOLUME 85.1 FL (78-98); MEAN PLATELET VOLUME 7.1 FL (7.4-10.4); MONOCYTES % (AUTO) 6.4 % (2-12); NEUTROPHILS # (AUTO) 11.4 X10'3 (1.8-7.7); NEUTROPHILS % (AUTO) 76.2 % (42-75); PLATELET COUNT 271 X10'3 (140-440); RED BLOOD COUNT 5.03 X10'6 (4.70-6.10); RED CELL DISTRIBUTION WIDTH 15.5 % (11.5-14.5)
--- NOTE | 2019-08-10 04:45 | NUR ---
Patient admitted to CICU 2011 via stretcher with diagnosis of cardiac arrhythmia. Patient alert and oriented. Denies pain. Color pale. Skin cool and clammy. Transferred to bed and placed on monitor. Patient noted to have a irregular ventricular rhythm. HR 130-150. BP 122/78. Dobutamine gtt running at 5mcg and Amiodarone at 1mg/min. Upon assessment right groin pressure dressing in place but hard hematoma palpated to upper thigh and groin. Area marked. Unable to obtain doppler pulses. Manual pressure applied to groin immediately. April Mai DIRECTOR OF SAFETY made aware. Order received to apply Femstop and to hold Heparin gtt. for now. H/H order for 7am. Femstop applied. Garibay catheter inserted. 14Fr. coude catheter used. Clinician present to interrogate pacemaker/AICD. Medicated with Ativan 0.5mg and Tylenol as ordered for pain and anxiety.
[2019-08-10] MEDS ORDERED: LIDOcaine 2% 10ml TOPICAL JELLY (Urojet) TP ONE (04:55)
[2019-08-10] MEDS ORDERED: nitroGLYCERIN 0.4mg SUBLingual tab SL PRN (05:05)
[2019-08-10] MEDS ORDERED: LORazepam 0.5 MG tablet PO PRN (05:05)
[2019-08-10 05:25] LABS: ALANINE AMINOTRANSFERASE 59 U/L (12-78); ALBUMIN 3.2 G/DL (3.4-5.0); ALBUMIN/GLOBULIN RATIO 0.8 (1.1-1.5); ALKALINE PHOSPHATASE 88 IU/L (46-116); ANION GAP 8 (8-16); ASPARTATE AMINO TRANSFERASE 28 U/L (10-37); BILIRUBIN,TOTAL 0.4 MG/DL (0.1-1.0); BLOOD UREA NITROGEN 21 MG/DL (7-18); CALCIUM 9.4 MG/DL (8.5-10.1); CHLORIDE 105 MMOL/L (99-107); CREATININE 1.31 MG/DL (0.60-1.10); GLUCOSE 148 MG/DL (70-104); MAGNESIUM 2.2 MG/DL (1.5-2.4); POTASSIUM 4.3 MMOL/L (3.5-5.1); SODIUM 139 MMOL/L (135-145); TOTAL CARBON DIOXIDE 25.9 MMOL/L (24-32); TOTAL PROTEIN 7.1 G/DL (6.4-8.2); eGFR 60 ML/MIN
[2019-08-10] MEDS: heparin 25,000 UNIT/250ml bag 250 ML IV SCH ×2 (05:59→15:08)
--- NOTE | 2019-08-10 06:16 | NUR ---
Patient noted in sustained VTACH. HR 240-310. Awake and alert. Complaining of SOB. Patient's AICD shocked x1 but patient continued in fast Ventricular rate. External defib pads in place and was about to defib patient but patient's own AICD fired again and patient now in an A/V Paced rhythm with HR 90's. BP 112/58. Patient denies pain or shortness of breath. Report given to oncoming shift RN.
[2019-08-10 06:32] LABS: HEMATOCRIT 45.8 % (42.0-52.0); HEMOGLOBIN 14.8 g/dl (14.0-17.9); MEAN CORPUSCULAR HEMOGLOBIN 27.5 PG (27.0-31.0); MEAN CORPUSCULAR HGB CONC 32.4 g/dL (33.0-36.5); MEAN PLATELET VOLUME 7.4 FL (7.4-10.4); PLATELET COUNT 338 X10'3 (140-440); RED BLOOD COUNT 5.39 X10'6 (4.70-6.10); RED CELL DISTRIBUTION WIDTH 15.6 % (11.5-14.5); WHITE BLOOD COUNT 15.6 X10'3 (4.5-11.0)
[2019-08-10] MEDS: docusate sod 100mg capsule PO SCH ×2 (07:13→19:14)
[2019-08-10] MEDS: DOBUTamine-DoBUTrex 500mg/D5W 250 ML IV PRN ×3 (07:28→19:23)
[2019-08-10] MEDS ORDERED: magnesium oxide 400mg tablet PO SCH (08:00)
[2019-08-10] MEDS ORDERED: aspirin 81mg tab.chew PO SCH (08:00)
[2019-08-10] MEDS: sacubitril/valsartan 24mg-26mg tablet PO SCH ×2 (08:00→19:15)
[2019-08-10] MEDS ORDERED: atorvastatin 20mg tablet PO SCH (08:00)
[2019-08-10] MEDS ORDERED: aripiprazole 5mg tablet PO SCH (08:00)
[2019-08-10] MEDS: carVEDilol 12.5mg tablet PO SCH ×2 (08:00→19:15)
[2019-08-10] MEDS ORDERED: apixaban 5mg tablet PO SCH (08:00)
[2019-08-10] MEDS ORDERED: spironolactone 25 MG tablet PO SCH (08:00)
[2019-08-10] MEDS ORDERED: pantoprazole 40 MG vial IV SCH (08:00)
[2019-08-10 11:16] LABS: HEMATOCRIT 42.9 % (42.0-52.0); MEAN CORPUSCULAR HEMOGLOBIN 27.5 PG (27.0-31.0); MEAN CORPUSCULAR HGB CONC 32.7 g/dL (33.0-36.5); MEAN CORPUSCULAR VOLUME 84.3 FL (78-98); MEAN PLATELET VOLUME 7.3 FL (7.4-10.4); PLATELET COUNT 293 X10'3 (140-440); RED BLOOD COUNT 5.09 X10'6 (4.70-6.10); RED CELL DISTRIBUTION WIDTH 16.1 % (11.5-14.5); WHITE BLOOD COUNT 14.2 X10'3 (4.5-11.0)
[2019-08-10 16:02] LABS: HEMATOCRIT 41.9 % (42.0-52.0); HEMOGLOBIN 13.8 g/dl (14.0-17.9); MEAN CORPUSCULAR HEMOGLOBIN 27.8 PG (27.0-31.0); MEAN CORPUSCULAR HGB CONC 32.8 g/dL (33.0-36.5); MEAN CORPUSCULAR VOLUME 84.8 FL (78-98); MEAN PLATELET VOLUME 7.3 FL (7.4-10.4); PLATELET COUNT 264 X10'3 (140-440); RED BLOOD COUNT 4.94 X10'6 (4.70-6.10); RED CELL DISTRIBUTION WIDTH 15.7 % (11.5-14.5); WHITE BLOOD COUNT 12.6 X10'3 (4.5-11.0)
--- NOTE | 2019-08-10 18:30 | NUR ---
Patient in room CICU 2011. I have received report from Addis NARAYANAN and had the opportunity to ask questions and assume patient care.
--- NOTE | 2019-08-10 18:38 | NUR ---
Problems reprioritized. Patient report given to Collin., questions answered & plan of care reviewed with . Also gave report to Alannah ([place] [facility]
[2019-08-10 19:23] LABS: HEMATOCRIT 41.3 % (42.0-52.0); HEMOGLOBIN 13.5 g/dl (14.0-17.9); MEAN CORPUSCULAR HEMOGLOBIN 27.6 PG (27.0-31.0); MEAN CORPUSCULAR HGB CONC 32.6 g/dL (33.0-36.5); MEAN CORPUSCULAR VOLUME 84.5 FL (78-98); PLATELET COUNT 244 X10'3 (140-440); RED BLOOD COUNT 4.88 X10'6 (4.70-6.10); WHITE BLOOD COUNT 12.5 X10'3 (4.5-11.0)
--- NOTE | 2019-08-10 19:44 | NUR ---
[place] [facility] [place] [facility], via ambulance; remains on amio and dobutamine gtts; VSS. Sent w/all belongings; LADY Polanco accompanying transport team.
[2019-08-12] MEDS ORDERED: lactulose 20gm/30ml cup PO PRN (03:05)
== END 2019-08-10 19:47 | disposition short-term general hospital (02) | DRG 201 ==
LOC: ER 22:57 → ED HOLD 08-10 03:02 → CICU 2S 08-10 04:00
PROVIDERS: ADMIT Internal Medicine Critical Care Medicine; ATTEND Internal Medicine Critical Care Medicine
PROC: 5A2204Z Restoration of Cardiac Rhythm, Single (ICD-10-PCS; principal; 2019-08-09)
DX: I47.2 Ventricular tachycardia (principal); I46.9 Cardiac arrest, cause unspecified; I42.0 Dilated cardiomyopathy; I50.9 Heart failure, unspecified; I11.0 Hypertensive heart disease with heart failure; E66.01 Morbid (severe) obesity due to excess calories; I42.7 Cardiomyopathy due to drug and external agent; I48.91 Unspecified atrial fibrillation; J44.9 Chronic obstructive pulmonary disease, unspecified; I25.10 Atherosclerotic heart disease of native coronary artery without angina pectoris; E78.00 Pure hypercholesterolemia, unspecified; E11.9 Type 2 diabetes mellitus without complications; E78.5 Hyperlipidemia, unspecified; F41.1 Generalized anxiety disorder; F32.9 Major depressive disorder, single episode, unspecified; G47.33 Obstructive sleep apnea (adult) (pediatric); S30.1XXA Contusion of abdominal wall, initial encounter; X58.XXXA Exposure to other specified factors, initial encounter; K21.9 Gastro-esophageal reflux disease without esophagitis; I49.01 Ventricular fibrillation; K76.0 Fatty (change of) liver, not elsewhere classified; Z95.810 Presence of automatic (implantable) cardiac defibrillator; I25.2 Old myocardial infarction; Z82.49 Family history of ischemic heart disease and other diseases of the circulatory system; Z68.43 Body mass index [BMI] 50.0-59.9, adult; Z79.899 Other long term (current) drug therapy; Z79.82 Long term (current) use of aspirin; Y93.89 Activity, other specified; Y92.89 Other specified places as the place of occurrence of the external cause; Y99.8 Other external cause status
CPT/HCPCS: 36415; 36556; 71045; 80053; 80305; 81001; 82948; 83735; 83880; 84100; 84484; 85025; 85027; 85379; 85384; 85610; 85730; 86885; 86900; 86901; 87081; 92960; 93005; 93925; 93970; 94760; 96365; 99291; C9113; G0378; J0171; J1250; J1265; J3475